=== PATIENT | female | born 1980 | race Caucasian/White ===

== ENCOUNTER 2017-11-12 18:33 | Inpatient (IN) | payer OTHER, SELFPAY ==
[2017-11-12] VITALS (7 sets, daily range): BP systolic 129–147; BP diastolic 84–98; PULSE 84–111; RESP 16–19; TEMP 36.4–36.9; O2SAT 94–100; BMI 34.4; BMI 34.8
--- NOTE | 2017-11-12 18:46 | ED.RN ---
NO OLD EKG'S IN MUSE
--- NOTE | 2017-11-12 18:50 | EKG12_ITS ---
Test Reason : CP Blood Pressure : / mmHG Vent. Rate : 104 BPM Atrial Rate : 104 BPM P-R Int : 150 ms QRS Dur : 080 ms QT Int : 336 ms P-R-T Axes : 054 041 016 degrees QTc Int : 441 ms Sinus tachycardia Otherwise normal ECG Confirmed by JAH HARRIS, REYNALDO ([id number]), editor book MARY GRACE OLSEN ([id number]) on 11/14/2017 10:51:38 AM Referred By: JACQUE RODRÍGUEZ Confirmed By:REYNALDO TYSON MD
--- NOTE | 2017-11-12 18:50 | RAD_ITS ---
STUDY: X-RAY CHEST REASON FOR EXAM: Female, 37 years old. Shortness breath and chest pain TECHNIQUE: Single frontal view of the chest. COMPARISON: Chest x-ray September 12, 2016 FINDINGS: The lungs are clear and expanded. There is no demonstrated pleural abnormality. Normal size heart. Normal mediastinum and lor. Normal visualized pulmonary arteries. Normal visualized aortic arch and descending thoracic aorta. Normal visualized thoracic spine. Normal visualized ribs, clavicles, and shoulders. There is no demonstrated abnormality of the visualized soft tissue structures of the upper abdomen. RAD/Chest 1 View (Portable) IMPRESSION: Normal x-ray examination of the chest. Electronically Signed: Juan Pastor MD at 19:15 EST , Service support ,
[2017-11-12 19:11] LABS: Absolute Lymphocyte Count 2.35 X10^3/ul (0.83-4.51); Basophil# 0.04 X10^3/uL; Basophil% 0.3 % (0-1); Eosinophil# 0.18 X10^3/uL; Eosinophils% 1.5 % (0-5); Hematocrit 42.8 % (37-47); Hemoglobin 14.6 g/dl (12.0-15.0); Lymphocyte # 2.35 X10^3/ul (4.0); Lymphocyte % 20.1 % (19-41); Mean Corp Hgb Conc 34.1 g/gl (32-36); Mean Corpuscular Hgb 30.4 pg (27.0-32.0); Mean Platelet Vol. 10.3 fl (6.2-12.0); Monocyte# 1.12 X10^3/uL; Monocyte% 9.6 % (0-10); Neutrophil # 7.98 X10^3/uL (2.7-7.7); Neutrophil % 68.2 % (47-70); POSITIVE COUNT NO; POSITIVE DIFFERENTIAL NO; POSITIVE MORPHOLOGY NO; Platelet Count 247 K/mm3 (150-450); RBC Distribution Width CV 12.1 % (11.6-14.6); Red Blood Count 4.81 M/mm3 (4.2-5.4); White Blood Count 11.7 K/mm3 (4.4-11.0)
--- NOTE | 2017-11-12 19:17 | CT_ITS ---
STUDY: CTA CHEST REASON FOR EXAM: Female, 37 years old. Shortness of breath and chest pain RADIATION DOSAGE (If Supplied By Facility): CTDIvol = ( 18.18 ) mGy, DLP = ( 713.59 ) mGycm TECHNIQUE: The examination was performed with the intravenous administration of 100ML ml of Isovue 370 contrast material. Post-processing of the angiographic images was performed, with multiplanar reformation and 3D reconstruction. Individualized dose optimization techniques were used for this CT. COMPARISON: November 12, 2017 chest x-ray FINDINGS: Occlusive filling defects are noted within the right and left main pulmonary arteries. No saddle embolism is identified. These filling defects extend into all the lobar and segmental branches bilaterally. No evidence of right ventricular strain. Normal thoracic aorta and visualized great vessels. There is no demonstrated aortic dissection. Normal heart and pericardium. Normal mediastinum. Normal hilar regions. Normal visualized trachea and bronchi. The lungs are well expanded. Normal pulmonary parenchyma. Normal pleura. Normal chest wall structures. Normal osseous structures. Normal visualized upper abdomen. CT/CTA Chest W/WO Contrast IMPRESSION: Extensive pulmonary emboli as above N.B. : The above information has been verbally conveyed by Juan Pastor MD to Marcela Vinson on 11/12/2017 20:28:43 (ET). Electronically Signed: Juan Pastor MD at 20:27 EST , Service support , N.B. : The above information has been verbally conveyed by Juan Pastor MD to Marcela Vinson on 11/12/2017 20:28:43 (ET).
--- NOTE | 2017-11-12 19:20 | ED.DCSUM_ITS ---
- ER Visit Summary Date of Service: 11/12/17 Chief Complaint: Chest pain History of Present Illness: The patient is a 37 F presenting with chest pain that started this morning. She complains of chest pain which has been constant but worsened with deep breathing. Associated with shortness of breath and nausea. She has felt lightheaded but had no syncope. She had Achilles tendon repair on October [address] James. Her left lower extremity is in a cast. She takes aspirin daily. She denies other PE/DVT risk factors. Denies coronary artery disease risk factors. Physical Examination: Vitals are stable. Patient is afebrile. Alert no acute distress. HEENT exam is unremarkable. Neck is supple. Lungs are clear and equal bilaterally. Heart is regular rate and rhythm. Abdomen is soft nontender nondistended. Extremities left lower extremity cast Skin is warm and dry. No focal neurologic deficit. Remainder of exam is unremarkable. Emergency Department Course and Treatment: EKG is sinus tachycardia rate of 104. Chest x-ray shows no acute process. CBC shows a white count 11.7. Chemistries unremarkable. Troponin is 1.03. HCG negative. CTA chest was obtained and shows occlusive filling defects are noted within the right and left main pulmonary arteries. No saddle embolism is identified. These filling defects extend into all the lobar and segmental branches bilaterally. No evidence of right ventricular strain. She is started on heparin drip. Discussed with the hospitalist for admission. Disposition: Admission Impression: Bilateral PE This note was generated with [employer] dictation software. It may contain incorrect words, spelling, and punctuation that were not noted in review of the chart prior to signing ED Disposition - Plan for ED Patient: Chief Complaint: Chest Pain Referrals: Lester Harrington DO [Primary Care Provider] -
[2017-11-12 19:38] LABS: Anion Gap 10 (5-15); BUN 13 mg/dL (7-18); BUN/Creat Ratio 14.9 RATIO (10-20); Calcium,Total 9.2 mg/dL (8.5-10.1); Chloride 109 mmol/L (98-107); Creatinine, Serum 0.87 mg/dL (0.55-1.02); EST Glomerular Filtration Rate 77 mL/min (>60); Est Glom Filt Rate - Afr Amer 94 mL/min (>60); Estimated Creatinine Clearance 95.74 ml/min; Glucose 98 mg/dL (70-110); Potassium 3.6 mmol/L (3.5-5.1); Pregnancy, Serum, hCG Quali. NEGATIVE Negative (0-9 Nonpreg); Sodium Level 140 mmol/L (136-145)
--- NOTE | 2017-11-12 19:38 | ED.RN ---
DR. SANTILLAN MADE AWARE OF ELEVATED TROPONIN 1.030
[2017-11-12] MEDS: Ondansetron 4 MG/2 ML Vial IV (20:09)
[2017-11-12 20:27] LABS: D-Dimer Quantitative (DVT/PE) 11.81 FEU/ug/m (0.27-0.49)
--- NOTE | 2017-11-12 20:27 | ED.RN ---
DR. SANTILLAN AWARE OF ELEVATED DDIMER- 11.8
[2017-11-12] MEDS: HEPARIN/D5w 25,000 UNITS 25,000 UNITS/250 ML IV.SOLN. 15 UNITS IV (20:55)
[2017-11-12 20:56] LABS: Partial Thromboplast Time 28.6 Seconds (24.1-36.2)
--- NOTE | 2017-11-12 21:42 | HP.PCM_ITS ---
Problem List (1) Bilateral pulmonary embolism Status: Acute (2) Asthmatic bronchitis Status: Chronic (3) IBS (irritable bowel syndrome) Status: Chronic History of Present Illness Date of Admission: 11/12/17 Chief Complaint: Bilateral pulmonary embolism The patient is a 37 year old female w/ h/o left leg cast secondary to Achilles tendon repair on October 23, 2017 admitted for bilateral PE. She c/o acute sudden chest pain that started this morning. Deep breath made it worse. Lying down and shallow breathing improved the pain. She also noted n/v with her chest pain. Pain is constant and is moderate to severe. Pain is substernal and is pressure-like. She was placed on ASA a few days ago by Dr. James. She has no other complaint. Past Medical History Past Medical History (Chronic Problems): Chronic Problems IBS (irritable bowel syndrome) (Chronic) Asthmatic bronchitis (Chronic) Allergies doxycycline Adverse Reaction (Verified 11/12/17 18:38) Vomiting Home Medications: Ambulatory Orders Medication Instructions Recorded Cholecalciferol (Vitamin D3) 5,000 units PO QHS 09/12/16 [Vitamin D3] Fluoxetine [Prozac] 20 mg PO QHS 09/12/16 Hyoscyamine Sulfate [Hyoscyamine 0.375 mg PO QHS 09/12/16 Sulfate ER] L.acidoph,Paracasei, B.lactis 1 each PO DAILY 09/12/16 [Probiotic] Levonorgestrel-Ethin Estradiol 1 each PO DAILY 09/12/16 [Lutera-28 Tablet] Surgical History: - - tonsil removed Smoking Status: Former smoker - *Family History Maternal History Items: - - mother with muscular dystrophy. Review of Systems Constitutional: Denies: Chills, Fever, Weight Change HEENT: Denies: Head Aches, Sinus Congestion, Sinus Drainage Cardiovascular: Reports: Chest Pain, Chest Pressure, Chest Tightness. Denies: Palpitations Respiratory: Denies: Cough, Shortness of breath at rest, Sputum production Gastrointestinal: Denies: Abdominal Pain, Nausea, Vomiting Genitourinary: Denies: Dysuria Musculoskeletal: Denies: Joint Pain, Joint Tenderness Skin: Denies: Rash, Wounds Neurological: Denies: Numbness, Tingling, Focal weakness Psychiatric: Denies: Anxiety, Depression, Homicidal Ideations, Suicidal Ideations Hematologic/ Lymphatic: Denies: Easy Bruising, Easy Bleeding VTE Information - Inpt Only VTE Present on Admission: No VTE Mechan Device Prophylaxis: SCD's VTE Pharm Prophylaxis ordered?: Yes Patient Problems: Active and Suspected Problems Bilateral pulmonary embolism (Acute) - Physical Exam General: Alert, Oriented x3, Cooperative HEENT: Atraumatic, PERRLA, EOMI, Normocephalic Neck: Supple, No JVD, Negative Carotid Bruits Lungs: Clear to auscultation, Normal air movement Cardiovascular: Regular rate, No murmurs Abdomen: Bowel Sounds Present, Soft, Non Tender Extremities: No edema, Capillary Refill Less than 3 Seconds Skin: No rashes, No breakdown Musculoskeletal: No Tenderness to Palpation of Joints or Extremities Neurological: Cranial nerves II-XII grossly intact Psych/Mental Status: Normal Affect, Appropriate Vital Signs Temp Pulse Resp BP Pulse Ox 98.5 F 97 16 134/94 H 98 11/12/17 18:38 11/12/17 21:27 11/12/17 21:27 11/12/17 21:27 11/12/17 21:27 Oxygen Flow Rate 2 Oxygen Delivery Method Nasal Cannula Weight: 108.862 kg Body Mass Index (BMI) 34.4 Laboratory Tests Past 24 Hrs 11/12/17 11/12/17 11/12/17 19:03 19:03 19:03 WBC 11.7 H RBC 4.81 Hgb 14.6 Hct 42.8 MCV 89.0 MCH 30.4 MCHC 34.1 RDW 12.1 RDW Differential 39.0 Plt Count 247 MPV 10.3 Immature Gran % (Auto) 0.300 Neut % (Auto) 68.2 Lymph % (Auto) 20.1 Carson % (Auto) 9.6 Eos % (Auto) 1.5 Baso % (Auto) 0.3 Absolute Neuts (auto) 8.0 H Absolute Lymphs (auto) 2.35 Total Counted Not Reportable APTT D-Dimer Quant (PE/DVT) 11.81 H* Sodium 140 Potassium 3.6 Chloride 109 H Carbon Dioxide 21.0 Anion Gap 10 BUN 13 Creatinine 0.87 Estim Creat Clear Calc 95.74 Est GFR (MDRD) Af Amer 94 Est GFR (MDRD) Non-Af 77 BUN/Creatinine Ratio 14.9 Glucose 98 Calcium 9.2 Troponin I 1.03 H* Serum , Qual 11/12/17 11/12/17 19:03 19:03 WBC RBC Hgb Hct MCV MCH MCHC RDW RDW Differential Plt Count MPV Immature Gran % (Auto) Neut % (Auto) Lymph % (Auto) Carson % (Auto) Eos % (Auto) Baso % (Auto) Absolute Neuts (auto) Absolute Lymphs (auto) Total Counted APTT 28.6 D-Dimer Quant (PE/DVT) Sodium Potassium Chloride Carbon Dioxide Anion Gap BUN Creatinine Estim Creat Clear Calc Est GFR (MDRD) Af Amer Est GFR (MDRD) Non-Af BUN/Creatinine Ratio Glucose Calcium Troponin I Serum , Qual NEGATIVE Assessment/Plan Active and Suspected Problems Bilateral pulmonary embolism (Acute) 37 year old female w/ h/o left leg cast secondary to Achilles tendon repair on October 23, 2017 admitted for bilateral PE. 1) Bilateral PE: CT disclosed occlusive filling defects within the right and left main pulmonary arteries. No saddle embolism is identified. These filling defects extend into all the lobar and segmental branches bilaterally. Will start heparin gtt. Will get ECHO. Will also get hypercoagulable workup, although most likely provoked by recent surgery and immobilization of left leg. 2) Chest pain: Will get serial trops. Most likely secondary to PE. Monitor. 3) H/o left leg cast secondary to Achilles tendon repair: C/w supportive care. Monitor. 4) Prophylaxis: Heparin.
[2017-11-12] MEDS: FLUoxetine 20 MG Capsule PO (23:37)
[2017-11-13] VITALS (11 sets, daily range): BP systolic 108–129; BP diastolic 63–78; PULSE 62–102; RESP 16–18; TEMP 36.4–37.1; O2SAT 95–100
[2017-11-13 03:20] LABS: Partial Thromboplast Time 73.8 Seconds (24.1-36.2)
--- NOTE | 2017-11-13 05:55 | ECHOD_ITS ---
Reason For Study: chest pain Procedure This was a 2D Doppler, Color Flow transthoracic echocardiogram. Exam performed portable in patient room. Left Ventricle Normal LV size. Left ventricular systolic function is normal. The estimated ejection fraction is 55 %. No regional wall motion abnormalities noted. Right Ventricle Normal RV size. Mild global right ventricular systolic dysfunction. Atria Normal left atrium. Normal right atrium. Mitral Valve Normal mitral valve. Tricuspid Valve Normal tricuspid valve. Mild (1+) tricuspid valve insufficiency. Pulmonary artery systolic pressure is 42 mmHg. Mild pulmonary hypertension. Aortic Valve Normal aortic valve. Trisinus/trileaflet aortic valve. Pulmonic Valve Normal pulmonic valve. Great Vessels Normal aortic root. The pulmonary artery is normal size. Pericardium/Pleural No pericardial effusion. MMode/2D Measurements & Calculations LVIDd: 4.0 cm IVSd: 1.1 cm Ao root diam: 2.8 cm LVIDs: 2.5 cm LVPWd: 1.0 cm LA dimension: 3.2 cm RVDd: 3.7 cm FS: 37.4 % LAV(MOD-bp): 32.0 ml LA A4 area: 12.9 cm2 RA A4 area: 16.6 cm2 LAV(MOD-bp) Indexed: 14.2 ml/m2 LAV(MOD-sp2): 27.8 ml LAV(MOD-sp4): 27.3 ml Doppler Measurements & Calculations MV E max jorge alberto: 50.0 cm/sec Lat Peak E' Jorge Alberto: 13.0 cm/sec Med Peak E' Jorge Alberto: 10.1 cm/sec MV A max jorge alberto: 61.0 cm/sec E/E' lat: 3.8 E/E' med: 4.9 MV E/A: 0.82 Ao V2 max: 122.9 cm/sec LV V1 max: 93.2 cm/sec PA V2 max: 77.0 cm/sec Ao max P.0 mmHg LV V1 max P.5 mmHg TR max jorge alberto: 302.1 cm/sec TR max P.6 mmHg Interpretation Summary Normal LV size. Left ventricular systolic function is normal. The estimated ejection fraction is 55 %. Mild global right ventricular systolic dysfunction. Pulmonary artery systolic pressure is 42 mmHg. Mild pulmonary hypertension. Ordering Physician: Macario Cronin Referring Physician: Lester Harrington Performed By: Gale Gross, STAR, RVT
[2017-11-13 06:21] LABS: Hemoglobin 13.6 g/dl (12.0-15.0); Mean Corpuscular Hgb 30.7 pg (27.0-32.0); Mean Corpuscular Volume 90.3 fL (81-99); Mean Platelet Vol. 10.6 fl (6.2-12.0); Platelet Count 247 K/mm3 (150-450); RBC Distribution Width CV 12.3 % (11.6-14.6); RBC Distribution Width SD 39.7 fl (35.1-43.9); Red Blood Count 4.43 M/mm3 (4.2-5.4); White Blood Count 8.2 K/mm3 (4.4-11.0)
[2017-11-13 06:29] LABS: Scan Indicated on CBC? Y/N NO
[2017-11-13 06:37] LABS: Anion Gap 8 (5-15); BUN 13 mg/dL (7-18); BUN/Creat Ratio 14.8 RATIO (10-20); Calcium,Total 8.8 mg/dL (8.5-10.1); Chloride 105 mmol/L (98-107); Creatinine, Serum 0.88 mg/dL (0.55-1.02); EST Glomerular Filtration Rate 77 mL/min (>60); Est Glom Filt Rate - Afr Amer 93 mL/min (>60); Estimated Creatinine Clearance 94.65 ml/min; Glucose 121 mg/dL (70-110); Sodium Level 140 mmol/L (136-145)
[2017-11-13 08:43] LABS: Partial Thromboplast Time 56.7 Seconds (24.1-36.2)
--- NOTE | 2017-11-13 11:17 | CASEMGMT ---
RN AMY Face to Face with patient for initial transition planning/care coordination assessment. RN CM introduced self and role at [facility]. Patient lying in chair, alert and oriented, family at bedside. Patient willing to participate in assessment and is able to answer all questions appropriately. Care providers, pharmacy, and demographics verified. See link attached. Patient wishes to discharge home, denies need for home health or DME at this time. Patient states she has no further needs or concerns at this time. CM to follow for discharge planning needs that may arise. Disposition Plan: Patient to discharge home with family support and follow-up plans at home.
[2017-11-13] MEDS: Acetaminophen 325 MG Tablet 650 MG PO (12:48)
[2017-11-13] MEDS: HEPARIN/D5w 25,000 UNITS 25,000 UNITS/250 ML IV.SOLN. 15 UNITS IV (12:48)
--- NOTE | 2017-11-13 14:09 | PN_ITS ---
Patient Problems: Active and Suspected Problems Bilateral pulmonary embolism (Acute) Subjective: Patient is a 37-year-old female with a history of asthma and irritable bowel syndrome currently had an Achilles tendon repair on 10/23/2017 sequently had a cast placed. She had been on ASA only a few days for DVT prophylaxis. She presented to the emergency department at [facility] on 2017 complaining of sudden onset chest pain which worsened with a deep breath. Vital signs at presentation to the emergency room were temp 98.5, pulse rate 111 , blood pressure 147/93, respiratory rate 19 and she was 98 100% saturated on room air. Significant lab included a d-dimer of 11.81 and a troponin of 1.03. CTA of the chest showed occlusive filling defects within the right and left main pulmonary arteries with no saddle embolism. The filling defects extended into all the lobar and segmental branches bilaterally. She was admitted to a monitored bed in the hospital with a diagnosis of extensive pulmonary emboli and she was started on a continuous heparin drip. Echocardiogram has been done to evaluate for right ventricular strain but results are not available at this time. She continues to complain of chest pain with deep breath. She had chest tightness when she ambulated to the bathroom and got very short of breath. She still has some lightheadedness with standing. She denies hemoptysis. she is taking shallow breaths and has not asked for any pain medication other than tylenol. She has never been and she denies any history of DVT. There is no family history of hypercoagulable disorders. She takes control pills to regulate her periods. She follows with Dr. Banks as an outpatient. - Physical Exam General: Alert, Oriented x3, Cooperative, Well developed, Well nourished HEENT: Atraumatic, PERRLA, EOMI, Normocephalic Oral: Dry Mucosa Neck: Supple, No JVD, Trachea Midline Lungs: Clear to auscultation, No rhonchi, No wheeze, No rales, Diminished - due to poor inspiratory effort Cardiovascular: Regular rate, No murmurs, No rub noted, No Gallop, Tachycardic Abdomen: Bowel Sounds Present, Soft, Non Tender, Non-Distended, Obese Extremities: - - Left lower extremity is in a cast which extends to approximately mid tibia. Skin: No rashes Neurological: Cranial nerves II-XII grossly intact, Neuro grossly intact Psych/Mental Status: Normal Affect, Appropriate Vital Signs Temp Pulse Resp BP Pulse Ox 97.6 F L 92 16 108/78 100 11/13/17 08:17 11/13/17 11:05 11/13/17 08:17 11/13/17 08:17 11/13/17 08:17 Oxygen Delivery Method Room Air Weight: 242 lb 11.663 oz Body Mass Index (BMI) 34.8 Intake and Output for Last 24 Hours 11/11/17 11/12/17 11/13/17 23:59 23:59 23:59 Intake Total 610.4 / 610.4 Output Total 0 / 0 Balance 610.4 / 610.4 Laboratory Tests Past 24 Hrs 11/12/17 11/12/17 11/13/17 22:40 22:40 02:30 WBC RBC Hgb Hct MCV MCH MCHC RDW RDW Differential Plt Count MPV APTT 73.8 H Dil Silvestre Viper Venom Protein C Antigen Pending Functional Protein C Pending Prot C Funct Activity Pending Antithrombin III Ag Pending Func Antithrombin III Pending Factor V Leiden Mutat Pending Sodium Potassium Chloride Carbon Dioxide Anion Gap BUN Creatinine Estim Creat Clear Calc Est GFR (MDRD) Af Amer Est GFR (MDRD) Non-Af BUN/Creatinine Ratio Glucose Calcium Troponin I 0.90 H* Beta-2-GPI IgG Ab Pending Beta-2-GPI IgA Ab Pending Beta-2-GPI IgM Ab Pending Anti-Cardiolipin IgG Ab Pending Anti-Cardiolipin IgM Ab Pending Factor II DNA Analysis Pending 11/13/17 11/13/17 11/13/17 02:30 03:00 05:35 WBC 8.2 RBC 4.43 Hgb 13.6 Hct 40.0 MCV 90.3 MCH 30.7 MCHC 34.0 RDW 12.3 RDW Differential 39.7 Plt Count 247 MPV 10.6 APTT Dil Silvestre Viper Venom Pending Protein C Antigen Functional Protein C Prot C Funct Activity Antithrombin III Ag Func Antithrombin III Factor V Leiden Mutat Sodium Potassium Chloride Carbon Dioxide Anion Gap BUN Creatinine Estim Creat Clear Calc Est GFR (MDRD) Af Amer Est GFR (MDRD) Non-Af BUN/Creatinine Ratio Glucose Calcium Troponin I 0.55 H Beta-2-GPI IgG Ab Beta-2-GPI IgA Ab Beta-2-GPI IgM Ab Anti-Cardiolipin IgG Ab Anti-Cardiolipin IgM Ab Factor II DNA Analysis 11/13/17 11/13/17 11/13/17 05:35 08:20 08:20 WBC RBC Hgb Hct MCV MCH MCHC RDW RDW Differential Plt Count MPV APTT 56.7 H Dil Silvestre Viper Venom Protein C Antigen Functional Protein C Prot C Funct Activity Antithrombin III Ag Func Antithrombin III Factor V Leiden Mutat Sodium 140 Potassium 4.0 Chloride 105 Carbon Dioxide 27.0 Anion Gap 8 BUN 13 Creatinine 0.88 Estim Creat Clear Calc 94.65 Est GFR (MDRD) Af Amer 93 Est GFR (MDRD) Non-Af 77 BUN/Creatinine Ratio 14.8 Glucose 121 H Calcium 8.8 Troponin I 0.33 H Beta-2-GPI IgG Ab Beta-2-GPI IgA Ab Beta-2-GPI IgM Ab Anti-Cardiolipin IgG Ab Anti-Cardiolipin IgM Ab Factor II DNA Analysis Assessment/Plan Active and Suspected Problems Bilateral pulmonary embolism (Acute) Impressions 1. Extensive bilateral pulmonary emboli with suspected RV strain and pulmonary HTN 2. Left Achilles tendon repair 10/23/2017 with cast placement 3. Obesity 4. Former smoker 5. History of asthma 6. Irritable bowel syndrome 7. Anxiety/depression 8. Pleuritic chest pain with hypoventilation Consult Dr. Horner for pulmonary hypertension and right ventricular strain because she will need follow-up after discharge Discontinue heparin infusion and start Xarelto 15 mg p.o. twice daily. This was discussed extensively with the patient and all pros and cons were discussed. No control pills Will need at least 6 months of anticoagulation. Await the results of the echocardiogram done today She will need to follow-up with Dr. Amber Banks post discharge to discuss menorrhagia and treatment since she will no longer be able to take control pills Results of the hypercoagulable panel are pending - the panel was drawn after she had received Heparin and the results may not be accurate...Will likely need follow up with hematology post DC Recheck BMP in the AM Incentive spirometry Code Visit Inpatient E&M: [address]001 [facility] L3
--- NOTE | 2017-11-13 15:05 | CON.PCM_ITS ---
Reason for Consult Date of Consultation: 11/13/17 Reason for Consultation: Pulmonary embolism History of Present Illness: The patient is a 37-year-old female, with a history as outlined below, who presented to the emergency department on November 12 with complaints of acute onset chest heaviness and dyspnea. The patient recently underwent an Achilles tendon repair at the beginning of October. A cast was subsequently applied to her left lower extremity. She was essentially nonweightbearing for a period of approximately 2 weeks. She was started on low-dose aspirin approximately 2 weeks after her surgery. She does currently utilizing oral contraceptive for control. She denies smoking. The patient reports no personal or family history of venous thromboembolic disease. There is no family history of a hypercoagulable state. On presentation to the emergency department, was noted to be afebrile, tachycardic and hemodynamically stable. Initial laboratory evaluation revealed an elevated d-dimer to 11.8. CBC and chemistry profile were largely unremarkable. Troponin was elevated to 1.03. A CTA chest was obtained which revealed bilateral mainstem pulmonary emboli extending out distally bilaterally. There was no evidence of RV strain by CT. The patient was subsequently started on a heparin drip and admitted to the progressive care unit for ongoing management. Past Medical History Past Medical History (Chronic Problems): Chronic Problems IBS (irritable bowel syndrome) (Chronic) Asthmatic bronchitis (Chronic) Allergies doxycycline Adverse Reaction (Verified 11/12/17 18:38) Vomiting Home Medications: Ambulatory Orders Medication Instructions Recorded Cholecalciferol (Vitamin D3) 5,000 units PO QHS 09/12/16 [Vitamin D3] Fluoxetine [Prozac] 20 mg PO QHS 09/12/16 Hyoscyamine Sulfate [Hyoscyamine 0.375 mg PO QHS 09/12/16 Sulfate ER] L.acidoph,Paracasei, B.lactis 1 each PO DAILY 09/12/16 [Probiotic] Levonorgestrel-Ethin Estradiol 1 each PO DAILY 09/12/16 [Lutera-28 Tablet] Rivaroxaban [Xarelto] 1 tab PO UD #51 tab 11/13/17 Surgical History: - - tonsil removed Smoking Status: Former smoker - *Family History Maternal History Items: - - mother with muscular dystrophy. Review of Systems Constitutional: Denies: Chills, Fever, Night Sweats Eyes: Denies: Blurred vision, Double vision HEENT: Denies: Head Aches, Sinus Congestion, Sinus Drainage Cardiovascular: Reports: Chest Pain, Chest Pressure, Light Headedness Respiratory: Reports: Pleuritic Pain, Shortness of Breath Gastrointestinal: Denies: Abdominal Pain, Nausea, Vomiting Genitourinary: Denies: Dysuria Musculoskeletal: Denies: Joint Pain, Joint Tenderness Skin: Denies: Rash, Wounds Neurological: Denies: Numbness, Tingling, Focal weakness Psychiatric: Denies: Anxiety, Depression, Homicidal Ideations, Suicidal Ideations Hematologic/ Lymphatic: Reports: Hx of blood clot. Denies: Easy Bruising, Easy Bleeding Patient Problems: Active and Suspected Problems Bilateral pulmonary embolism (Acute) Objective: The patient's most recent lab work, culture data and imaging studies have all been personally reviewed. Surface echocardiogram revealed mild global RV dysfunction along with evidence of mild pulmonary hypertension. - Physical Exam General: Alert, Oriented x3, Cooperative, No apparent distress HEENT: Atraumatic, PERRLA, Normocephalic Oral: Moist Mucosa, No Gingival or Mucosal Lesions/ Ulcerations Neck: Supple, No Nodes, Trachea Midline Lungs: Normal air movement, No rhonchi, No wheeze, No rales Cardiovascular: Normal S1, Normal S2, No murmurs, No rub noted, No Gallop, Tachycardic Abdomen: Bowel Sounds Present, Soft, Non Tender, Obese Extremities: No clubbing, No cyanosis, No edema, - - Cast in place over distal left lower extremity. Skin: No rashes, No breakdown Musculoskeletal: No Tenderness to Palpation of Joints or Extremities Lymphatic: No Cervical, Supraclavicular, or Inguinal Adenopathy Neurological: Neuro grossly intact Psych/Mental Status: Alert and oriented to time, place, person, mood and affect Vital Signs Temp Pulse Resp BP Pulse Ox 98.4 F 92 16 120/73 95 11/13/17 14:37 11/13/17 14:37 11/13/17 14:37 11/13/17 14:37 11/13/17 14:37 Oxygen Delivery Method Room Air Weight: 242 lb 11.663 oz Body Mass Index (BMI) 34.8 Intake and Output for Last 24 Hours 11/11/17 11/12/17 11/13/17 23:59 23:59 23:59 Intake Total 610.4 / 610.4 Output Total 0 / 0 Balance 610.4 / 610.4 Laboratory Tests Past 24 Hrs 11/12/17 11/12/17 11/13/17 22:40 22:40 02:30 WBC RBC Hgb Hct MCV MCH MCHC RDW RDW Differential Plt Count MPV APTT 73.8 H Dil Silvestre Viper Venom Protein C Antigen Pending Functional Protein C Pending Prot C Funct Activity Pending Antithrombin III Ag Pending Func Antithrombin III Pending Factor V Leiden Mutat Pending Sodium Potassium Chloride Carbon Dioxide Anion Gap BUN Creatinine Estim Creat Clear Calc Est GFR (MDRD) Af Amer Est GFR (MDRD) Non-Af BUN/Creatinine Ratio Glucose Calcium Troponin I 0.90 H* Beta-2-GPI IgG Ab Pending Beta-2-GPI IgA Ab Pending Beta-2-GPI IgM Ab Pending Anti-Cardiolipin IgG Ab Pending Anti-Cardiolipin IgM Ab Pending Factor II DNA Analysis Pending 11/13/17 11/13/17 11/13/17 02:30 03:00 05:35 WBC 8.2 RBC 4.43 Hgb 13.6 Hct 40.0 MCV 90.3 MCH 30.7 MCHC 34.0 RDW 12.3 RDW Differential 39.7 Plt Count 247 MPV 10.6 APTT Dil Silvestre Viper Venom Pending Protein C Antigen Functional Protein C Prot C Funct Activity Antithrombin III Ag Func Antithrombin III Factor V Leiden Mutat Sodium Potassium Chloride Carbon Dioxide Anion Gap BUN Creatinine Estim Creat Clear Calc Est GFR (MDRD) Af Amer Est GFR (MDRD) Non-Af BUN/Creatinine Ratio Glucose Calcium Troponin I 0.55 H Beta-2-GPI IgG Ab Beta-2-GPI IgA Ab Beta-2-GPI IgM Ab Anti-Cardiolipin IgG Ab Anti-Cardiolipin IgM Ab Factor II DNA Analysis 11/13/17 11/13/17 11/13/17 05:35 08:20 08:20 WBC RBC Hgb Hct MCV MCH MCHC RDW RDW Differential Plt Count MPV APTT 56.7 H Dil Silvestre Viper Venom Protein C Antigen Functional Protein C Prot C Funct Activity Antithrombin III Ag Func Antithrombin III Factor V Leiden Mutat Sodium 140 Potassium 4.0 Chloride 105 Carbon Dioxide 27.0 Anion Gap 8 BUN 13 Creatinine 0.88 Estim Creat Clear Calc 94.65 Est GFR (MDRD) Af Amer 93 Est GFR (MDRD) Non-Af 77 BUN/Creatinine Ratio 14.8 Glucose 121 H Calcium 8.8 Troponin I 0.33 H Beta-2-GPI IgG Ab Beta-2-GPI IgA Ab Beta-2-GPI IgM Ab Anti-Cardiolipin IgG Ab Anti-Cardiolipin IgM Ab Factor II DNA Analysis Clinical Impression(s) from Imaging Studies Chest X-Ray 11/12/17 18:50 IMPRESSION: Normal x-ray examination of the chest. Electronically Signed: Juan Pastor MD at 19:15 EST , Service support , Chest CTA 11/12/17 19:17 IMPRESSION: Extensive pulmonary emboli as above N.B. : The above information has been verbally conveyed by Juan Pastor MD to Marcela Vinson on 11/12/2017 20:28:43 (ET). Electronically Signed: Juan Pastor MD at 20:27 EST , Service support , N.B. : The above information has been verbally conveyed by Juan Pastor MD to Marcela Vinson on 11/12/2017 20:28:43 (ET). Assessment/Plan Active and Suspected Problems Bilateral pulmonary embolism (Acute) RECOMMENDATIONS: 1. Okay from my perspective to initiate Xarelto. 2. Encourage incentive spirometer use and mobilize patient as tolerated 3. The patient will require a formal walk evaluation prior to consideration for discharge from the hospital. She will likely have an oxygen requirement. This can be reassessed at her follow-up office visit. 4. Recommend follow-up in the pulmonary medicine clinic within 2 weeks of her discharge from the hospital. IMPRESSIONS: 1. Submassive pulmonary embolism Despite the patient's extensive clot burden, she has remained hemodynamically stable. Aside from the use of oral contraceptives, the patient does endorse recent immobility following her recent Achilles tendon repair. I would recommend a minimum of 6 months of anticoagulation therapy. She has been transitioned from a heparin drip over to Xarelto. A surface echocardiogram is currently pending. Troponins are downtrending. Perform walking oximetry study prior to consideration for discharge from the hospital. It is highly likely that the patient will have a new supplemental oxygen requirement. She will require a close interval follow-up office visit with our nurse practitioner within 2 weeks of her discharge. Her ongoing need for supplemental oxygen can be reassessed at that time. 2. Troponin elevation/mild RV dysfunction and pulmonary hypertension Likely secondary to cardiac strain imposed by extensive clot burden. This should resolve with time and appropriate anticoagulation therapy. Plan to reassess with repeat outpatient echocardiogram. This note was generated with [employer] dictation software. It may contain incorrect words, spelling, and punctuation that were not noted in checking the note before signing. Code Visit Inpatient E&M: 60321 Init Hosp L2
[2017-11-13] MEDS: Rivaroxaban 15 MG Tablet PO (16:45)
[2017-11-13] MEDS: 0.9% Normal Saline 1,000 ML 500 ML IV (16:45)
[2017-11-13] MEDS: FLUoxetine 20 MG Capsule PO (22:19)
[2017-11-14] VITALS (10 sets, daily range): BP systolic 130–144; BP diastolic 71–82; PULSE 76–91; RESP 12–16; TEMP 36.6–37.3; O2SAT 95–99
[2017-11-14 07:37] LABS: Hematocrit 39.5 % (37-47); Hemoglobin 13.2 g/dl (12.0-15.0); Mean Corp Hgb Conc 33.4 g/gl (32-36); Mean Corpuscular Hgb 30.5 pg (27.0-32.0); Mean Corpuscular Volume 91.2 fL (81-99); Mean Platelet Vol. 10.2 fl (6.2-12.0); Platelet Count 215 K/mm3 (150-450); RBC Distribution Width CV 12.2 % (11.6-14.6); RBC Distribution Width SD 40.2 fl (35.1-43.9); Red Blood Count 4.33 M/mm3 (4.2-5.4); White Blood Count 6.3 K/mm3 (4.4-11.0)
[2017-11-14 07:38] LABS: Scan Indicated on CBC? Y/N NO
[2017-11-14 07:58] LABS: ALB/GLOB Ratio 0.8 RATIO (0.9-2.4); AST(SGOT) 12 U/L (15-37); Alanine Aminotransfer ALT/SGPT 28 U/L (13-56); Alkaline Phosphatase 87 U/L (45-117); Anion Gap 6 (5-15); BUN 13 mg/dL (7-18); BUN/Creat Ratio 13.3 RATIO (10-20); Calcium,Total 8.4 mg/dL (8.5-10.1); Chloride 108 mmol/L (98-107); Cholesterol 173 mg/dL (200); Creatinine, Serum 0.97 mg/dL (0.55-1.02); EST Glomerular Filtration Rate 68 mL/min (>60); Est Glom Filt Rate - Afr Amer 83 mL/min (>60); Estimated Creatinine Clearance 85.87 ml/min; Globulin 3.7 g/dL (2.2-4.2); Glucose 108 mg/dL (70-110); High Density Lipoprotein 48 mg/dL; Potassium 4.1 mmol/L (3.5-5.1); Protein, Total 6.7 g/dL (6.4-8.2); Sodium Level 143 mmol/L (136-145); Triglycerides 77 mg/dL; Very Low Density Lipoprotein 15 mg/dL (5-40)
[2017-11-14] MEDS: Rivaroxaban 15 MG Tablet PO ×2 (09:51→16:16)
--- NOTE | 2017-11-14 10:27 | PCM.PROGNOTE ---
Patient Problems: Active and Suspected Problems Bilateral pulmonary embolism (Acute) Subjective: Patient seen and examined. Reports her chest pain has resolved, but still has significant heaviness. Still having significant dyspnea on exertion. Ambulatory pulse ox has not yet been completed. Remains afebrile and hemodynamically stable. Objective: Clinical Impression(s) from Imaging Studies Chest X-Ray 11/12/17 18:50 IMPRESSION: Normal x-ray examination of the chest. Electronically Signed: Juan Pastor MD at 19:15 EST , Service support , Chest CTA 11/12/17 19:17 IMPRESSION: Extensive pulmonary emboli as above N.B. : The above information has been verbally conveyed by Juan Pastor MD to Marcela Vinson on 11/12/2017 20:28:43 (ET). Electronically Signed: Juan Pastor MD at 20:27 EST , Service support , N.B. : The above information has been verbally conveyed by Juan Pastor MD to Marcela Vnison on 11/12/2017 20:28:43 (ET). Echocardiogram 11/13 showed normal LV systolic function, estimated EF of 55%, mild global right ventricular systolic dysfunction, and RVSP estimated 42 mmHg, c/w mild pulmonary hypertension. - Physical Exam General: Alert, Oriented x3, Cooperative, - - short of breath secondary to just returning from bathroom/ambulation HEENT: Atraumatic, Normocephalic Oral: Moist Mucosa, No Gingival or Mucosal Lesions/ Ulcerations Neck: Supple, No Nodes, Trachea Midline Lungs: Clear to auscultation, No rhonchi, No wheeze, No rales Cardiovascular: Regular rate, Regular Rhythm, Normal S1, Normal S2, No murmurs, No rub noted, No Gallop Abdomen: Bowel Sounds Present, Soft, Non Tender, Non-Distended, Obese Extremities: No clubbing, No cyanosis, No edema, - - LLE cast. Toes pink, cap refill <3 sec Skin: No rashes, No breakdown, Incision - occluded by cast, did not visualize Musculoskeletal: No Tenderness to Palpation of Joints or Extremities Lymphatic: No Cervical, Supraclavicular, or Inguinal Adenopathy Neurological: Neuro grossly intact Psych/Mental Status: Alert and oriented to time, place, person, mood and affect Vital Signs Temp Pulse Resp BP Pulse Ox 98.2 F 81 12 131/80 H 96 11/14/17 09:50 11/14/17 09:50 11/14/17 09:50 11/14/17 09:50 11/14/17 09:50 Oxygen Delivery Method Room Air Weight: 242 lb 11.663 oz Body Mass Index (BMI) 34.8 Intake and Output for Last 24 Hours 11/12/17 11/13/17 11/14/17 23:59 23:59 23:59 Intake Total 610.4 / 610.4 360 / 360 Output Total 0 / 0 Balance 610.4 / 610.4 360 / 360 Laboratory Tests Past 24 Hrs 11/14/17 11/14/17 07:20 07:20 WBC 6.3 RBC 4.33 Hgb 13.2 Hct 39.5 MCV 91.2 MCH 30.5 MCHC 33.4 RDW 12.2 RDW Differential 40.2 Plt Count 215 MPV 10.2 Sodium 143 Potassium 4.1 Chloride 108 H Carbon Dioxide 29.0 Anion Gap 6 BUN 13 Creatinine 0.97 Estim Creat Clear Calc 85.87 Est GFR (MDRD) Af Amer 83 Est GFR (MDRD) Non-Af 68 BUN/Creatinine Ratio 13.3 Glucose 108 Calcium 8.4 L Total Bilirubin 0.30 AST 12 L ALT 28 Alkaline Phosphatase 87 Total Protein 6.7 Albumin 3.0 L Globulin 3.7 Albumin/Globulin Ratio 0.8 L Triglycerides 77 Cholesterol 173 LDL Cholesterol 110 VLDL Cholesterol 15 HDL Cholesterol 48 Assessment/Plan Active and Suspected Problems Bilateral pulmonary embolism (Acute) RECOMMENDATIONS: 1. Continue Xarelto. 2. Encourage incentive spirometer use and mobilize patient as tolerated 3. Walking oximetry prior to discharge from the hospital. She will likely have an oxygen requirement. This can be reassessed at her follow-up office visit. 4. Patient will require repeat echocardiogram, will be arranged at her follow-up appointment. 5. Recommend follow-up in the pulmonary medicine clinic within 2 weeks of her discharge from the hospital. IMPRESSIONS: 1. Submassive pulmonary embolism Despite the patient's extensive clot burden, she has remained hemodynamically stable. Aside from the use of oral contraceptives, the patient does endorse recent immobility following her recent Achilles tendon repair. I would recommend a minimum of 6 months of anticoagulation therapy. She has been transitioned from a heparin drip over to Xarelto. Unfortunately, her hypercoagulable workup was drawn after the initiation of the heparin drip, therefore invalid. A surface echocardiogram is currently pending. Troponins are downtrending. Perform walking oximetry study prior to consideration for discharge from the hospital. It is highly likely that the patient will have a new supplemental oxygen requirement. She will require a close interval follow-up office visit with our nurse practitioner within 2 weeks of her discharge. Her ongoing need for supplemental oxygen can be reassessed at that time. 2. Troponin elevation/mild RV dysfunction and pulmonary hypertension Likely secondary to cardiac strain imposed by extensive clot burden. This should resolve with time and appropriate anticoagulation therapy. Plan to reassess with repeat outpatient echocardiogram. This note was generated with [employer] dictation software. It may contain incorrect words, spelling, and punctuation that were not noted in checking the note before signing.
--- NOTE | 2017-11-14 10:37 | PN_ITS ---
Patient Problems: Active and Suspected Problems Bilateral pulmonary embolism (Acute) Subjective: Patient seen and examined. Reports her chest pain has resolved, but still has significant heaviness. Still having significant dyspnea on exertion. Ambulatory pulse ox has not yet been completed. Remains afebrile and hemodynamically stable. Objective: Clinical Impression(s) from Imaging Studies Chest X-Ray 11/12/17 18:50 IMPRESSION: Normal x-ray examination of the chest. Electronically Signed: Juan Pastor MD at 19:15 EST , Service support , Chest CTA 11/12/17 19:17 IMPRESSION: Extensive pulmonary emboli as above N.B. : The above information has been verbally conveyed by Juan Pastor MD to Marcela Vinson on 11/12/2017 20:28:43 (ET). Electronically Signed: Juan Pastor MD at 20:27 EST , Service support , N.B. : The above information has been verbally conveyed by Juan Pastor MD to Marcela Vinson on 11/12/2017 20:28:43 (ET). Echocardiogram 11/13 showed normal LV systolic function, estimated EF of 55%, mild global right ventricular systolic dysfunction, and RVSP estimated 42 mmHg, c/w mild pulmonary hypertension. - Physical Exam General: Alert, Oriented x3, Cooperative, - - short of breath secondary to just returning from bathroom/ambulation HEENT: Atraumatic, Normocephalic Oral: Moist Mucosa, No Gingival or Mucosal Lesions/ Ulcerations Neck: Supple, No Nodes, Trachea Midline Lungs: Clear to auscultation, No rhonchi, No wheeze, No rales Cardiovascular: Regular rate, Regular Rhythm, Normal S1, Normal S2, No murmurs, No rub noted, No Gallop Abdomen: Bowel Sounds Present, Soft, Non Tender, Non-Distended, Obese Extremities: No clubbing, No cyanosis, No edema, - - LLE cast. Toes pink, cap refill <3 sec Skin: No rashes, No breakdown, Incision - occluded by cast, did not visualize Musculoskeletal: No Tenderness to Palpation of Joints or Extremities Lymphatic: No Cervical, Supraclavicular, or Inguinal Adenopathy Neurological: Neuro grossly intact Psych/Mental Status: Alert and oriented to time, place, person, mood and affect Vital Signs Temp Pulse Resp BP Pulse Ox 98.2 F 81 12 131/80 H 96 11/14/17 09:50 11/14/17 09:50 11/14/17 09:50 11/14/17 09:50 11/14/17 09:50 Oxygen Delivery Method Room Air Weight: 242 lb 11.663 oz Body Mass Index (BMI) 34.8 Intake and Output for Last 24 Hours 11/12/17 11/13/17 11/14/17 23:59 23:59 23:59 Intake Total 610.4 / 610.4 360 / 360 Output Total 0 / 0 Balance 610.4 / 610.4 360 / 360 Laboratory Tests Past 24 Hrs 11/14/17 11/14/17 07:20 07:20 WBC 6.3 RBC 4.33 Hgb 13.2 Hct 39.5 MCV 91.2 MCH 30.5 MCHC 33.4 RDW 12.2 RDW Differential 40.2 Plt Count 215 MPV 10.2 Sodium 143 Potassium 4.1 Chloride 108 H Carbon Dioxide 29.0 Anion Gap 6 BUN 13 Creatinine 0.97 Estim Creat Clear Calc 85.87 Est GFR (MDRD) Af Amer 83 Est GFR (MDRD) Non-Af 68 BUN/Creatinine Ratio 13.3 Glucose 108 Calcium 8.4 L Total Bilirubin 0.30 AST 12 L ALT 28 Alkaline Phosphatase 87 Total Protein 6.7 Albumin 3.0 L Globulin 3.7 Albumin/Globulin Ratio 0.8 L Triglycerides 77 Cholesterol 173 LDL Cholesterol 110 VLDL Cholesterol 15 HDL Cholesterol 48 Assessment/Plan Active and Suspected Problems Bilateral pulmonary embolism (Acute) RECOMMENDATIONS: 1. Continue Xarelto. 2. Encourage incentive spirometer use and mobilize patient as tolerated 3. Walking oximetry prior to discharge from the hospital. She will likely have an oxygen requirement. This can be reassessed at her follow-up office visit. 4. Patient will require repeat echocardiogram, will be arranged at her follow- up appointment. 5. Recommend follow-up in the pulmonary medicine clinic within 2 weeks of her discharge from the hospital. IMPRESSIONS: 1. Submassive pulmonary embolism Despite the patient's extensive clot burden, she has remained hemodynamically stable. Aside from the use of oral contraceptives, the patient does endorse recent immobility following her recent Achilles tendon repair. I would recommend a minimum of 6 months of anticoagulation therapy. She has been transitioned from a heparin drip over to Xarelto. Unfortunately, her hypercoagulable workup was drawn after the initiation of the heparin drip, therefore invalid. A surface echocardiogram is currently pending. Troponins are downtrending. Perform walking oximetry study prior to consideration for discharge from the hospital. It is highly likely that the patient will have a new supplemental oxygen requirement. She will require a close interval follow- up office visit with our nurse practitioner within 2 weeks of her discharge. Her ongoing need for supplemental oxygen can be reassessed at that time. 2. Troponin elevation/mild RV dysfunction and pulmonary hypertension Likely secondary to cardiac strain imposed by extensive clot burden. This should resolve with time and appropriate anticoagulation therapy. Plan to reassess with repeat outpatient echocardiogram. This note was generated with [employer] dictation software. It may contain incorrect words, spelling, and punctuation that were not noted in checking the note before signing.
--- NOTE | 2017-11-14 11:19 | CASEMGMT ---
Xarelto script tubed to [facility] retail pharmacy at this time after ok from pt to have script filled here to check on co-pay. Xarelto Co-pay card applied and pt will have $10 co-pay, pt updated at this time and pharmacy to deliver med to pt. Page sent to Dr. Serra at this time, updating her. Heraclio BARROSO CM
[2017-11-14 14:15] LABS: Dilute Russell Viper Venom 39.2 sec (0.0-47.0)
--- NOTE | 2017-11-14 18:21 | PCM.DC ---
- Discharge Diagnoses Current Active Problems: Current Active and Chronic Problems Bilateral pulmonary embolism (Acute) You will use the following diet at home:: No restrictions Your food should be the consistency of: Regular Your liquids should be the consistency of: Regular/Thin Discharge Activity: - - Activity as tolerated. No dangerous activities such as Bungie jumping, hang gliding, rupal diving, zip lining while taking Xarelto May resume sexual activity in: No Restrictions Weight Bearing Status: - - Continue previous orders for weight bearing after Achilles tendon repair Call your doctor if you observe: Fever of 101 or Higher, Shortness of breath, Dizziness, Fainting spells, Swelling in the ankles, Chest pain, Uncontrolled pain, - - coughing up blood, bleeding from the nose, mouth or rectum Instructions: Pulmonary Embolism Additional Instructions: No control pills until you talk with Dr. Banks. Do not start smoking because it is a risk factor for blood clots. You will need to take the anticoagulant for at least 6 months. You had MANY pulmonary emboli and it has caused a strain on the right heart and increased BP in the lungs. You are going to need to follow up with Shannan in Dr. Horner's office in 2 weeks. The Echocardiogram will need to be repeated in the future to see in the right heart strain and the pulmonary hypertension resolve with treatment with anticoagulation. You are going to bleed more easily than normal if you get as cut because of the anticoagulant so if you get a cut hold pressure on it for 10 miutes with no peaking. If you get a bruise put ice on KRISTIAN for 15 minutews to limit the size of the bruise. Let the surgeon know that you are on a blood thinner for pulmonary emboli. Pending Tests on Discharge: Hypercoagulable testing. Allergies/Adverse Reactions: Allergies doxycycline Adverse Reaction (Verified 11/12/17 18:38) Vomiting Medications to take at Discharge Cholecalciferol (Vitamin D3) [Vitamin D3] 5,000 units PO QHS 09/12/16 Fluoxetine [Prozac] 20 mg PO QHS 09/12/16 Hyoscyamine Sulfate [Hyoscyamine Sulfate ER] 0.375 mg PO QHS 09/12/16 L.acidoph,Paracasei, B.lactis [Probiotic] 1 each PO DAILY 09/12/16 Rivaroxaban [Xarelto] 1 tab PO UD #51 tab 11/13/17 Acetaminophen [Tylenol Tablet] 650 mg PO Q4H PRN PRN tablet 11/14/17 The following prescriptions were given: Rivaroxaban [Xarelto] 1 tab PO UD #51 tab Primary Care Physician: Lester Harrington DO [Primary Care Provider] - Please follow up with your Primary Care Physician in: 5-7 days Please Follow Up With: Darian Horner DO When: 2 weeks Proposed Discharge Date: 11/14/17
--- NOTE | 2017-11-14 18:45 | PCM.DC.SUM ---
Discharge Date and Diagnosis - Problem List Patient Problems: Active and Suspected Problems Bilateral pulmonary embolism (Acute) Date of Admission: 11/12/17 Date of Discharge: 11/14/17 - Primary Discharge Diagnosis Active and Suspected Problems Extensive Bilateral pulmonary emboli (Acute) Elevated troponin due to acute R heart strain Acute Pulmonary HTN - Secondary Discharge Diagnosis Chronic Problems IBS (irritable bowel syndrome) (Chronic) Asthmatic bronchitis (Chronic) menorrhagia on BCP's Anxiety/depression on an SSRI Hospital Course and Treatment Imaging Results: Clinical Impression(s) from Imaging Studies Chest X-Ray 11/12/17 18:50 IMPRESSION: Normal x-ray examination of the chest. Electronically Signed: Juan Pastor MD at 19:15 EST , Service support , Chest CTA 11/12/17 19:17 IMPRESSION: Extensive pulmonary emboli as above N.B. : The above information has been verbally conveyed by Juan Pastor MD to Marcela Vinson on 11/12/2017 20:28:43 (ET). Electronically Signed: Juan Pastor MD at 20:27 EST , Service support , N.B. : The above information has been verbally conveyed by Juan Pastor MD to Marcela Vinson on 11/12/2017 20:28:43 (ET). Laboratory Tests 11/12/17 11/12/17 11/12/17 19:03 19:03 19:03 WBC 11.7 H RBC 4.81 Hgb 14.6 Hct 42.8 MCV 89.0 MCH 30.4 MCHC 34.1 RDW 12.1 RDW Differential 39.0 Plt Count 247 MPV 10.3 Immature Gran % (Auto) 0.300 Neut % (Auto) 68.2 Lymph % (Auto) 20.1 Bullock % (Auto) 9.6 Eos % (Auto) 1.5 Baso % (Auto) 0.3 Absolute Neuts (auto) 8.0 H Absolute Lymphs (auto) 2.35 Total Counted Not Reportable APTT D-Dimer Quant (PE/DVT) 11.81 H* Dil Silvestre Viper Venom Sodium 140 Potassium 3.6 Chloride 109 H Carbon Dioxide 21.0 Anion Gap 10 BUN 13 Creatinine 0.87 Estim Creat Clear Calc 95.74 Est GFR (MDRD) Af Amer 94 Est GFR (MDRD) Non-Af 77 BUN/Creatinine Ratio 14.9 Glucose 98 Calcium 9.2 Total Bilirubin AST ALT Alkaline Phosphatase Troponin I 1.03 H* Total Protein Albumin Globulin Albumin/Globulin Ratio Triglycerides Cholesterol LDL Cholesterol VLDL Cholesterol HDL Cholesterol Serum , Qual 11/12/17 11/12/17 11/12/17 19:03 19:03 22:40 WBC RBC Hgb Hct MCV MCH MCHC RDW RDW Differential Plt Count MPV Immature Gran % (Auto) Neut % (Auto) Lymph % (Auto) Bullock % (Auto) Eos % (Auto) Baso % (Auto) Absolute Neuts (auto) Absolute Lymphs (auto) Total Counted APTT 28.6 D-Dimer Quant (PE/DVT) Dil Silvestre Viper Venom Sodium Potassium Chloride Carbon Dioxide Anion Gap BUN Creatinine Estim Creat Clear Calc Est GFR (MDRD) Af Amer Est GFR (MDRD) Non-Af BUN/Creatinine Ratio Glucose Calcium Total Bilirubin AST ALT Alkaline Phosphatase Troponin I 0.90 H* Total Protein Albumin Globulin Albumin/Globulin Ratio Triglycerides Cholesterol LDL Cholesterol VLDL Cholesterol HDL Cholesterol Serum , Qual NEGATIVE 11/13/17 11/13/17 11/13/17 02:30 02:30 03:00 WBC RBC Hgb Hct MCV MCH MCHC RDW RDW Differential Plt Count MPV Immature Gran % (Auto) Neut % (Auto) Lymph % (Auto) Bullock % (Auto) Eos % (Auto) Baso % (Auto) Absolute Neuts (auto) Absolute Lymphs (auto) Total Counted APTT 73.8 H D-Dimer Quant (PE/DVT) Dil Silvestre Viper Venom 39.2 Sodium Potassium Chloride Carbon Dioxide Anion Gap BUN Creatinine Estim Creat Clear Calc Est GFR (MDRD) Af Amer Est GFR (MDRD) Non-Af BUN/Creatinine Ratio Glucose Calcium Total Bilirubin AST ALT Alkaline Phosphatase Troponin I 0.55 H Total Protein Albumin Globulin Albumin/Globulin Ratio Triglycerides Cholesterol LDL Cholesterol VLDL Cholesterol HDL Cholesterol Serum , Qual 11/13/17 11/13/17 11/13/17 05:35 05:35 08:20 WBC 8.2 RBC 4.43 Hgb 13.6 Hct 40.0 MCV 90.3 MCH 30.7 MCHC 34.0 RDW 12.3 RDW Differential 39.7 Plt Count 247 MPV 10.6 Immature Gran % (Auto) Neut % (Auto) Lymph % (Auto) Bullock % (Auto) Eos % (Auto) Baso % (Auto) Absolute Neuts (auto) Absolute Lymphs (auto) Total Counted APTT D-Dimer Quant (PE/DVT) Dil Silvestre Viper Venom Sodium 140 Potassium 4.0 Chloride 105 Carbon Dioxide 27.0 Anion Gap 8 BUN 13 Creatinine 0.88 Estim Creat Clear Calc 94.65 Est GFR (MDRD) Af Amer 93 Est GFR (MDRD) Non-Af 77 BUN/Creatinine Ratio 14.8 Glucose 121 H Calcium 8.8 Total Bilirubin AST ALT Alkaline Phosphatase Troponin I 0.33 H Total Protein Albumin Globulin Albumin/Globulin Ratio Triglycerides Cholesterol LDL Cholesterol VLDL Cholesterol HDL Cholesterol Serum , Qual 11/13/17 11/14/17 11/14/17 08:20 07:20 07:20 WBC 6.3 RBC 4.33 Hgb 13.2 Hct 39.5 MCV 91.2 MCH 30.5 MCHC 33.4 RDW 12.2 RDW Differential 40.2 Plt Count 215 MPV 10.2 Immature Gran % (Auto) Neut % (Auto) Lymph % (Auto) Bullock % (Auto) Eos % (Auto) Baso % (Auto) Absolute Neuts (auto) Absolute Lymphs (auto) Total Counted APTT 56.7 H D-Dimer Quant (PE/DVT) Dil Silvestre Viper Venom Sodium 143 Potassium 4.1 Chloride 108 H Carbon Dioxide 29.0 Anion Gap 6 BUN 13 Creatinine 0.97 Estim Creat Clear Calc 85.87 Est GFR (MDRD) Af Amer 83 Est GFR (MDRD) Non-Af 68 BUN/Creatinine Ratio 13.3 Glucose 108 Calcium 8.4 L Total Bilirubin 0.30 AST 12 L ALT 28 Alkaline Phosphatase 87 Troponin I Total Protein 6.7 Albumin 3.0 L Globulin 3.7 Albumin/Globulin Ratio 0.8 L Triglycerides 77 Cholesterol 173 LDL Cholesterol 110 VLDL Cholesterol 15 HDL Cholesterol 48 Serum , Qual Dr. Darian Horner - pulmonary medicine Operations: None Procedures: 2-D Echocardiogram Summary of Care Provided: Patient is a 37-year-old female with a history of asthma, menorrhagia (on BCP's) and irritable bowel syndrome who had an Achilles tendon repair on 10/23/2017 and subsequently had a cast placed. She had been on ASA 325 mg daily only a few days for DVT prophylaxis. She presented to the emergency department at [facility] on 11/12/2017 complaining of sudden onset chest pain which worsened with a deep breath. Vital signs at presentation to the emergency room were temp 98.5, pulse rate 111, blood pressure 147/93, respiratory rate 19 and she was 98-100% saturated on room air. Significant lab included a d-dimer of 11.81 and a troponin of 1.03. CTA of the chest showed occlusive filling defects within the right and left main pulmonary arteries with no saddle embolism. The filling defects extended into all the lobar and segmental branches bilaterally. She was admitted to a monitored bed on PCU with a diagnosis of extensive pulmonary emboli and she was started on a continuous heparin drip. A hypercoagulable panel was ordered but it was drawn after the patient already received Heparin and this invalidates the results. Troponin decreased after admission. ECHO was done and was consistent with RV strain and pulmonary HTN due to the extensive clot burden. She was seen in consult by Dr. Darian Horner from pulmonary. He will see her in 2 weeks post DC for follow up for pulmonary HTN. She will need a follow up ECHO going forward to follow the progression of the pulmonary HTN. She was transitioned to Xarelto and will take 15 mg q 12H for 3 weeks and then start 20 mg once daily. Ambulatory pulse ox was obtained prior to discharge and the pulse ox on room air at rest was 96% and with ambulation on room air was 95%. She denied any chest discomfort at the time of discharge. Vital signs at discharge were temperature 99.2, heart rate 84, blood pressure 130/82, pulse rate 16 and she was 95% saturated on room air. Telemetry monitoring showed no significant ventricular ectopy during her hospital stay. She is going to follow-up with her primary care physician, Dr. Lester Harrington, in 5-7 days and will not return to work until okayed by Dr. Harrington. She was instructed to notify her surgeon that she had been in the hospital for pulmonary emboli and was now on full dose anticoagulation. She will schedule a follow-up appointment with Dr. Banks to discuss menorrhagia and tx going forward since she will no longer be taking her current BCP. At the time of discharge she had no conversational dyspnea and no tachypnea. She appeared to be in no acute distress. Auscultation of lungs revealed good air exchange throughout with no rales, rhonchi or wheezes. The heart had a regular rate and rhythm with a normal S1, normal S2 with no gallop. This note was generated with [employer] dictation software. It may contain incorrect words, spelling, and punctuation that were not noted in checking the note before signing. Discharge Diet: No Restrictions Discharge Activity: - - Activity as tolerated. No dangerous activities such as Bungie jumping, hang gliding, rupal diving, zip lining while taking Xarelto May resume sexual activity in: No Restrictions Weight Bearing Status: - - Continue previous orders for weight bearing after Achilles tendon repair Call your doctor if you observe: Fever of 101 or Higher, Shortness of breath, Dizziness, Fainting spells, Swelling in the ankles, Chest pain, Uncontrolled pain, - - coughing up blood, bleeding from the nose, mouth or rectum Home Medications: Medications to take at Discharge Cholecalciferol (Vitamin D3) [Vitamin D3] 5,000 units PO QHS 09/12/16 Fluoxetine [Prozac] 20 mg PO QHS 09/12/16 Hyoscyamine Sulfate [Hyoscyamine Sulfate ER] 0.375 mg PO QHS 09/12/16 L.acidoph,Paracasei, B.lactis [Probiotic] 1 each PO DAILY 09/12/16 Rivaroxaban [Xarelto] 1 tab PO UD #51 tab 11/13/17 Acetaminophen [Tylenol Tablet] 650 mg PO Q4H PRN PRN tablet 11/14/17 Following Prescrptions Were Given to Patient: Rivaroxaban [Xarelto] 1 tab PO UD #51 tab Primary Care Physician: Lester Harrington DO [Primary Care Provider] - Please follow up with your Primary Care Physician in: 5-7 days Please Follow Up With: Darian Horner DO When: 2 weeks Patient Instructions: Pulmonary Embolism Pending Tests Upon Discharge: hypercoagulable panel Disposition: Home Minutes spent on discharge:: 35 Patient Condition:: Stable Meaningful Use Info Meaningful Use Diagnoses (Choose all that apply): VTE - VTE Anticoag overlap given w/in hospital stay or rx'd at [place]?: No Pt receive overlap for 5 days?: No Reason overlap not ordered, prescribed, or given for 5 days: Treatment Not Indicated - being discharged on Xarelto Code Visit Inpatient E&M: 94210 Disch Hosp
--- NOTE | 2017-11-14 19:00 | DS.PCM_ITS ---
Discharge Date and Diagnosis - Problem List Patient Problems: Active and Suspected Problems Bilateral pulmonary embolism (Acute) Date of Admission: 11/12/17 Date of Discharge: 11/14/17 - Primary Discharge Diagnosis Active and Suspected Problems Extensive Bilateral pulmonary emboli (Acute) Elevated troponin due to acute R heart strain Acute Pulmonary HTN - Secondary Discharge Diagnosis Chronic Problems IBS (irritable bowel syndrome) (Chronic) Asthmatic bronchitis (Chronic) menorrhagia on BCP's Anxiety/depression on an SSRI Hospital Course and Treatment Imaging Results: Clinical Impression(s) from Imaging Studies Chest X-Ray 11/12/17 18:50 IMPRESSION: Normal x-ray examination of the chest. Electronically Signed: Juan Pastor MD at 19:15 EST , Service support , Chest CTA 11/12/17 19:17 IMPRESSION: Extensive pulmonary emboli as above N.B. : The above information has been verbally conveyed by Juan Pastor MD to Marcela Vinson on 11/12/2017 20:28:43 (ET). Electronically Signed: Juan Pastor MD at 20:27 EST , Service support , N.B. : The above information has been verbally conveyed by Juan Pastor MD to Mracela Vinson on 11/12/2017 20:28:43 (ET). Laboratory Tests 11/12/17 11/12/17 11/12/17 19:03 19:03 19:03 WBC 11.7 H RBC 4.81 Hgb 14.6 Hct 42.8 MCV 89.0 MCH 30.4 MCHC 34.1 RDW 12.1 RDW Differential 39.0 Plt Count 247 MPV 10.3 Immature Gran % (Auto) 0.300 Neut % (Auto) 68.2 Lymph % (Auto) 20.1 Free[place] % (Auto) 9.6 Eos % (Auto) 1.5 Baso % (Auto) 0.3 Absolute Neuts (auto) 8.0 H Absolute Lymphs (auto) 2.35 Total Counted Not Reportable APTT D-Dimer Quant (PE/DVT) 11.81 H* Dil Silvestre Viper Venom Sodium 140 Potassium 3.6 Chloride 109 H Carbon Dioxide 21.0 Anion Gap 10 BUN 13 Creatinine 0.87 Estim Creat Clear Calc 95.74 Est GFR (MDRD) Af Amer 94 Est GFR (MDRD) Non-Af 77 BUN/Creatinine Ratio 14.9 Glucose 98 Calcium 9.2 Total Bilirubin AST ALT Alkaline Phosphatase Troponin I 1.03 H* Total Protein Albumin Globulin Albumin/Globulin Ratio Triglycerides Cholesterol LDL Cholesterol VLDL Cholesterol HDL Cholesterol Serum , Qual 11/12/17 11/12/17 11/12/17 19:03 19:03 22:40 WBC RBC Hgb Hct MCV MCH MCHC RDW RDW Differential Plt Count MPV Immature Gran % (Auto) Neut % (Auto) Lymph % (Auto) Free[place] % (Auto) Eos % (Auto) Baso % (Auto) Absolute Neuts (auto) Absolute Lymphs (auto) Total Counted APTT 28.6 D-Dimer Quant (PE/DVT) Dil Silvestre Viper Venom Sodium Potassium Chloride Carbon Dioxide Anion Gap BUN Creatinine Estim Creat Clear Calc Est GFR (MDRD) Af Amer Est GFR (MDRD) Non-Af BUN/Creatinine Ratio Glucose Calcium Total Bilirubin AST ALT Alkaline Phosphatase Troponin I 0.90 H* Total Protein Albumin Globulin Albumin/Globulin Ratio Triglycerides Cholesterol LDL Cholesterol VLDL Cholesterol HDL Cholesterol Serum , Qual NEGATIVE 11/13/17 11/13/17 11/13/17 02:30 02:30 03:00 WBC RBC Hgb Hct MCV MCH MCHC RDW RDW Differential Plt Count MPV Immature Gran % (Auto) Neut % (Auto) Lymph % (Auto) [place] % (Auto) Eos % (Auto) Baso % (Auto) Absolute Neuts (auto) Absolute Lymphs (auto) Total Counted APTT 73.8 H D-Dimer Quant (PE/DVT) Dil Silvestre Viper Venom 39.2 Sodium Potassium Chloride Carbon Dioxide Anion Gap BUN Creatinine Estim Creat Clear Calc Est GFR (MDRD) Af Amer Est GFR (MDRD) Non-Af BUN/Creatinine Ratio Glucose Calcium Total Bilirubin AST ALT Alkaline Phosphatase Troponin I 0.55 H Total Protein Albumin Globulin Albumin/Globulin Ratio Triglycerides Cholesterol LDL Cholesterol VLDL Cholesterol HDL Cholesterol Serum , Qual 11/13/17 11/13/17 11/13/17 05:35 05:35 08:20 WBC 8.2 RBC 4.43 Hgb 13.6 Hct 40.0 MCV 90.3 MCH 30.7 MCHC 34.0 RDW 12.3 RDW Differential 39.7 Plt Count 247 MPV 10.6 Immature Gran % (Auto) Neut % (Auto) Lymph % (Auto) [place] % (Auto) Eos % (Auto) Baso % (Auto) Absolute Neuts (auto) Absolute Lymphs (auto) Total Counted APTT D-Dimer Quant (PE/DVT) Dil Silvestre Viper Venom Sodium 140 Potassium 4.0 Chloride 105 Carbon Dioxide 27.0 Anion Gap 8 BUN 13 Creatinine 0.88 Estim Creat Clear Calc 94.65 Est GFR (MDRD) Af Amer 93 Est GFR (MDRD) Non-Af 77 BUN/Creatinine Ratio 14.8 Glucose 121 H Calcium 8.8 Total Bilirubin AST ALT Alkaline Phosphatase Troponin I 0.33 H Total Protein Albumin Globulin Albumin/Globulin Ratio Triglycerides Cholesterol LDL Cholesterol VLDL Cholesterol HDL Cholesterol Serum , Qual 11/13/17 11/14/17 11/14/17 08:20 07:20 07:20 WBC 6.3 RBC 4.33 Hgb 13.2 Hct 39.5 MCV 91.2 MCH 30.5 MCHC 33.4 RDW 12.2 RDW Differential 40.2 Plt Count 215 MPV 10.2 Immature Gran % (Auto) Neut % (Auto) Lymph % (Auto) Free[place] % (Auto) Eos % (Auto) Baso % (Auto) Absolute Neuts (auto) Absolute Lymphs (auto) Total Counted APTT 56.7 H D-Dimer Quant (PE/DVT) Dil Silvestre Viper Venom Sodium 143 Potassium 4.1 Chloride 108 H Carbon Dioxide 29.0 Anion Gap 6 BUN 13 Creatinine 0.97 Estim Creat Clear Calc 85.87 Est GFR (MDRD) Af Amer 83 Est GFR (MDRD) Non-Af 68 BUN/Creatinine Ratio 13.3 Glucose 108 Calcium 8.4 L Total Bilirubin 0.30 AST 12 L ALT 28 Alkaline Phosphatase 87 Troponin I Total Protein 6.7 Albumin 3.0 L Globulin 3.7 Albumin/Globulin Ratio 0.8 L Triglycerides 77 Cholesterol 173 LDL Cholesterol 110 VLDL Cholesterol 15 HDL Cholesterol 48 Serum , Qual Dr. Darian Horner - pulmonary medicine Operations: None Procedures: 2-D Echocardiogram Summary of Care Provided: Patient is a 37-year-old female with a history of asthma, menorrhagia (on BCP's ) and irritable bowel syndrome who had an Achilles tendon repair on 10/23/2017 and subsequently had a cast placed. She had been on ASA 325 mg daily only a few days for DVT prophylaxis. She presented to the emergency department at [facility] on 11/12/2017 complaining of sudden onset chest pain which worsened with a deep breath. Vital signs at presentation to the emergency room were temp 98.5, pulse rate 111, blood pressure 147/93, respiratory rate 19 and she was 98-100% saturated on room air. Significant lab included a d-dimer of 11.81 and a troponin of 1.03. CTA of the chest showed occlusive filling defects within the right and left main pulmonary arteries with no saddle embolism. The filling defects extended into all the lobar and segmental branches bilaterally. She was admitted to a monitored bed on PCU with a diagnosis of extensive pulmonary emboli and she was started on a continuous heparin drip. A hypercoagulable panel was ordered but it was drawn after the patient already received Heparin and this invalidates the results. Troponin decreased after admission. ECHO was done and was consistent with RV strain and pulmonary HTN due to the extensive clot burden. She was seen in consult by Dr. Darian Horner from pulmonary. He will see her in 2 weeks post DC for follow up for pulmonary HTN. She will need a follow up ECHO going forward to follow the progression of the pulmonary HTN. She was transitioned to Xarelto and will take 15 mg q 12H for 3 weeks and then start 20 mg once daily. Ambulatory pulse ox was obtained prior to discharge and the pulse ox on room air at rest was 96% and with ambulation on room air was 95%. She denied any chest discomfort at the time of discharge. Vital signs at discharge were temperature 99.2, heart rate 84, blood pressure 130/82, pulse rate 16 and she was 95% saturated on room air. Telemetry monitoring showed no significant ventricular ectopy during her hospital stay. She is going to follow-up with her primary care physician, Dr. Lester Harrington, in 5-7 days and will not return to work until okayed by Dr. Harrington. She was instructed to notify her surgeon that she had been in the hospital for pulmonary emboli and was now on full dose anticoagulation. She will schedule a follow-up appointment with Dr. Banks to discuss menorrhagia and tx going forward since she will no longer be taking her current BCP. At the time of discharge she had no conversational dyspnea and no tachypnea. She appeared to be in no acute distress. Auscultation of lungs revealed good air exchange throughout with no rales, rhonchi or wheezes. The heart had a regular rate and rhythm with a normal S1, normal S2 with no gallop. This note was generated with [employer] dictation software. It may contain incorrect words, spelling, and punctuation that were not noted in checking the note before signing. Discharge Diet: No Restrictions Discharge Activity: - - Activity as tolerated. No dangerous activities such as Bungie jumping, hang gliding, rupal diving, zip lining while taking Xarelto May resume sexual activity in: No Restrictions Weight Bearing Status: - - Continue previous orders for weight bearing after Achilles tendon repair Call your doctor if you observe: Fever of 101 or Higher, Shortness of breath, Dizziness, Fainting spells, Swelling in the ankles, Chest pain, Uncontrolled pain, - - coughing up blood, bleeding from the nose, mouth or rectum Home Medications: Medications to take at Discharge Cholecalciferol (Vitamin D3) [Vitamin D3] 5,000 units PO QHS 09/12/16 Fluoxetine [Prozac] 20 mg PO QHS 09/12/16 Hyoscyamine Sulfate [Hyoscyamine Sulfate ER] 0.375 mg PO QHS 09/12/16 L.acidoph,Paracasei, B.lactis [Probiotic] 1 each PO DAILY 09/12/16 Rivaroxaban [Xarelto] 1 tab PO UD #51 tab 11/13/17 Acetaminophen [Tylenol Tablet] 650 mg PO Q4H PRN PRN tablet 11/14/17 Following Prescrptions Were Given to Patient: Rivaroxaban [Xarelto] 1 tab PO UD #51 tab Primary Care Physician: Lester Harrington DO [Primary Care Provider] - Please follow up with your Primary Care Physician in: 5-7 days Please Follow Up With: Darian Horner DO When: 2 weeks Patient Instructions: Pulmonary Embolism Pending Tests Upon Discharge: hypercoagulable panel Disposition: Home Minutes spent on discharge:: 35 Patient Condition:: Stable Meaningful Use Info Meaningful Use Diagnoses (Choose all that apply): VTE - VTE Anticoag overlap given w/in hospital stay or rx'd at [place]?: No Pt receive overlap for 5 days?: No Reason overlap not ordered, prescribed, or given for 5 days: Treatment Not Indicated - being discharged on Xarelto Code Visit Inpatient E&M: [id number] Disch Hosp
[2017-11-17 16:09] LABS: Antithrombin 3 Function 64 % (75-135); Protein C Antigen 121 % (60-150)
[2017-11-18 08:59] LABS: Anti-Cardiolipin Ab, IgG, Qn < 9 GPL U/mL (0-14); Anti-Cardiolipin Ab, IgM, Qn < 9 MPL U/mL (0-12); Anti-Thrombin 3 AG, Immunol 85 % (72-124); Beta-2-Glycoprotein I IgA <9 (0-25); Beta-2-Glycoprotein I IgG <9 (0-20); Beta-2-Glycoprotein I IgM <9 (0-32); Protein C, Functional > 199 % (73-180)
== END 2017-11-14 20:05 | disposition home or self-care (01) | DRG 176 ==
LOC: ED 21:01 → PCU 21:35
PROVIDERS: Admitting Provider Internal Medicine; Emergency Provider Emergency Medicine; Family Provider Student in an Organized Health Care Education/Training Program; PCP Student in an Organized Health Care Education/Training Program; Visit Provider Internal Medicine
DX: I26.99 Other pulmonary embolism without acute cor pulmonale (principal); I27.20 Pulmonary hypertension, unspecified; J42 Unspecified chronic bronchitis; K58.9 Irritable bowel syndrome, unspecified; J45.909 Unspecified asthma, uncomplicated; E66.9 Obesity, unspecified; F41.9 Anxiety disorder, unspecified; F32.9 Major depressive disorder, single episode, unspecified; Z68.34 Body mass index [BMI] 34.0-34.9, adult; Z87.891 Personal history of nicotine dependence; N92.0 Excessive and frequent menstruation with regular cycle
CPT/HCPCS: 36415; 71045; 71275; 80048; 80053; 80061; 81240; 81241; 84484; 84703; 85025; 85027; 85300; 85301; 85302; 85303; 85379; 85613; 85730; 86146; 86147; 93005; 93306; 99285; J7030; Q9957; Q9967; A4216; J2405

== ENCOUNTER 2017-12-15 19:44 | Emergency (ER) | payer OTHER, SELFPAY ==
[2017-12-15 19:45] VITALS: BP 144/93; PULSE 74; RESP 16; TEMP 36.9; O2SAT 99; BMI 35.2
[2017-12-15] MEDS: 0.9% Normal Saline 1,000 ML 1000 ML IV (20:32)
[2017-12-15 20:34] LABS: Absolute Lymphocyte Count 2.75 X10^3/ul (0.83-4.51); Absolute Neutrophil Count 2.8 X10^3/uL (2.0-7.7); Basophil# 0.04 X10^3/uL; Basophil% 0.6 % (0-1); Eosinophil# 0.23 X10^3/uL; Eosinophils% 3.6 % (0-5); Hematocrit 40.2 % (37-47); Hemoglobin 13.5 g/dl (12.0-15.0); Lymphocyte # 2.75 X10^3/ul (4.0); Lymphocyte % 43.4 % (19-41); Mean Corp Hgb Conc 33.6 g/gl (32-36); Mean Corpuscular Hgb 30.3 pg (27.0-32.0); Mean Corpuscular Volume 90.1 fL (81-99); Mean Platelet Vol. 9.7 fl (6.2-12.0); Monocyte# 0.52 X10^3/uL; Monocyte% 8.2 % (0-10); Neutrophil # 2.78 X10^3/uL (2.7-7.7); POSITIVE COUNT NO; POSITIVE DIFFERENTIAL NO; POSITIVE MORPHOLOGY NO; Platelet Count 269 K/mm3 (150-450); RBC Distribution Width CV 12.4 % (11.6-14.6); RBC Distribution Width SD 40.5 fl (35.1-43.9); Red Blood Count 4.46 M/mm3 (4.2-5.4); White Blood Count 6.3 K/mm3 (4.4-11.0)
[2017-12-15 20:40] VITALS: BP 134/77; BP 141/94; BP 148/90; PULSE 68; PULSE 71; PULSE 78
[2017-12-15 20:40] LABS: International Normalized Ratio 1.3; Prothrombin Time (Protime)PT. 15.8 SECONDS (11.7-14.9)
[2017-12-15 20:41] LABS: Partial Thromboplast Time 36.5 Seconds (24.1-36.2)
[2017-12-15 20:52] LABS: Anion Gap 5 (5-15); BUN 13 mg/dL (7-18); BUN/Creat Ratio 15.8 RATIO (10-20); Calcium,Total 8.6 mg/dL (8.5-10.1); Chloride 107 mmol/L (98-107); Creatinine, Serum 0.82 mg/dL (0.55-1.02); EST Glomerular Filtration Rate 83 mL/min (>60); Est Glom Filt Rate - Afr Amer 100 mL/min (>60); Estimated Creatinine Clearance 101.58 ml/min; Glucose 94 mg/dL (74-106); Potassium 3.8 mmol/L (3.5-5.1); Sodium Level 142 mmol/L (136-145)
[2017-12-15 20:59] LABS: Pregnancy, Serum, hCG Quali. NEGATIVE Negative (0-9 Nonpreg)
--- NOTE | 2017-12-15 21:25 | ED.VISSUMM ---
- ER Visit Summary Date of Service: 12/15/17 Chief Complaint: Vaginal bleeding History of Present Illness: The patient is a [address] Varner and Dr. Harrington. She reports that she had surgery on her left foot in October. The end of October she was diagnosed with a PE. She was taken off her control pills and placed on Xarelto. She reports that she had not had a menstrual period for quite some time. Patient reports that her first period since beginning Xarelto started 1 week ago. She reports the bleeding is gradually increased. Is become much more heavy over the past 24 hours. She reports that she is changing a super tampon, overnight pad, an adult diaper once an hour. She does report she had heavy periods when she was younger and that was why she was placed on control. Patient denies any shortness of breath, chest pain, or abdominal pain. Physical Examination: Vitals: Stable. Afebrile. General: Well-nourished and well-developed. Head: Normocephalic atraumatic. Neck: Supple, no lymphadenopathy. No JVD. Nontender. Cardiovascular: Regular rate and rhythm. No murmurs. Respiratory: No respiratory distress. Clear to auscultation bilaterally. Abdominal: Soft, nontender, nondistended, normal bowel sounds. No guarding, rebound, or peritoneal signs. Back: Nontender. Extremities: Nontender, no edema. Skin: Normal color, no rash. Neurologic: Alert and oriented ?3. Cranial nerves II through XII are intact. Normal strength and sensation. Psych: Normal affect. Test Results: CBC is remarkable for a hemoglobin of 13.5 and hematocrit of 40.2. Chem-7 is normal. INR is 1.3. PTT is 36.5. test is negative. Emergency Department Course and Treatment: She had negative orthostatic vital signs while here. In fact her heart rate was in the low 70s. Treatment Plan: Patient was discussed with Dr. Peterson. She will be discharged instructions to follow-up Dr. Banks 3-5 days if not improving. Return to the emergency department for any worsening symptoms. Disposition: To home in improved and stable condition. Impression: 1. Menorrhagia. 2. Coagulopathy on Xarelto. 3. History of PE. This note was generated with [employer] software. It may contain incorrect words, spelling, and punctuation that were not noted in review of the chart prior to signing ED Disposition - Plan for ED Patient: Disposition: Home or Assisted Living Chief Complaint: Vag Bleeding Instructions: ED Bleeding Menstrual Heavy Referrals: Amber Banks MD [STAFF PHYSICIAN] - 3-5 Days
--- NOTE | 2017-12-15 21:51 | ED.RN ---
IV DC'ED, CATHETER INTACT, SMALL GAUZE DRESSING PLACED. DISCHARGE INSTRUCTIONS GIVEN TO AND REVIEWED WITH PATIENT, PATIENT DENIES QUESTIONS OR CONCERNS AND VOICES UNDERSTANDING OF DISCHARGE INSTRUCTIONS. PT AMBULATES OUT OF ROOM WITHOUT DIFFICULTY.
== END 2017-12-15 21:52 | disposition home or self-care (01) ==
LOC: ED 20:07
PROVIDERS: Emergency Provider Emergency Medicine; Family Provider Student in an Organized Health Care Education/Training Program; PCP Student in an Organized Health Care Education/Training Program
DX: N92.0 Excessive and frequent menstruation with regular cycle (principal); D68.9 Coagulation defect, unspecified; Z86.711 Personal history of pulmonary embolism; Z79.01 Long term (current) use of anticoagulants; Z79.3 Long term (current) use of hormonal contraceptives
CPT/HCPCS: 80048; 84703; 85025; 85610; 85730; 99284; J7030; A4216

== ENCOUNTER → 2017-12-20 11:20 | Outpatient (CLI) | payer OTHER, SELFPAY ==
--- NOTE | 2017-12-20 11:23 | US_ITS ---
STUDY: ULTRASOUND OF THE FEMALE PELVIS - COMPLETE REASON FOR EXAM: Female, 37 years old. Irregular menses TECHNIQUE: Transabdominal and Transvaginal TECHNICAL QUALITY: Adequate. COMPARISON: None. FINDINGS: The uterus is anteverted and is tilted to the right side of the pelvis. The uterus measures 8.4 x 4.4 x 4.1 cm. There is a Nabothian cyst of the cervix. The endometrium measures 9 mm in thickness, and is hyperechoic. Heterogeneously hypoattenuated mass within the lower uterine segment measuring 3.0 x 3.2 x 2.8 cm. There is a heterogeneously hypoattenuated mass posterior to the uterine body measuring 5.4 x 6.1 x 4.7 cm. No I.U.D. The right ovary is visualized. The right ovary measures 2.8 x 1.8 x 1.4 cm. There is no right ovarian cyst or ovarian mass. There is no visualized right adnexal mass or complex lesion. There is normal arterial and normal venous vascularity. The left ovary is visualized. The left ovary measures 1.6 x 1.3 x 1.5 cm. There is no left ovarian cyst or ovarian mass. There is no visualized left adnexal mass or complex lesion. There is normal arterial and normal venous vascularity. There is no fluid in the cul-de-sac. The pre void volume of the bladder was 75 ml. Polycystic ovary disease: No. US/Pelvic (Non ) IMPRESSION: Myomatous uterus Electronically Signed: Weston Wesley MD at 3:39 EST Tel , Service support ,
--- NOTE | 2017-12-20 11:34 | US_ITS ---
STUDY: ULTRASOUND OF THE FEMALE PELVIS - COMPLETE REASON FOR EXAM: Female, 37 years old. Irregular menses TECHNIQUE: Transabdominal and Transvaginal TECHNICAL QUALITY: Adequate. COMPARISON: None. FINDINGS: The uterus is anteverted and is tilted to the right side of the pelvis. The uterus measures 8.4 x 4.4 x 4.1 cm. There is a Nabothian cyst of the cervix. The endometrium measures 9 mm in thickness, and is hyperechoic. Heterogeneously hypoattenuated mass within the lower uterine segment measuring 3.0 x 3.2 x 2.8 cm. There is a heterogeneously hypoattenuated mass posterior to the uterine body measuring 5.4 x 6.1 x 4.7 cm. No I.U.D. The right ovary is visualized. The right ovary measures 2.8 x 1.8 x 1.4 cm. There is no right ovarian cyst or ovarian mass. There is no visualized right adnexal mass or complex lesion. There is normal arterial and normal venous vascularity. The left ovary is visualized. The left ovary measures 1.6 x 1.3 x 1.5 cm. There is no left ovarian cyst or ovarian mass. There is no visualized left adnexal mass or complex lesion. There is normal arterial and normal venous vascularity. There is no fluid in the cul-de-sac. The pre void volume of the bladder was 75 ml. Polycystic ovary disease: No. US/Transvaginal Non- IMPRESSION: Myomatous uterus Electronically Signed: Weston Wesley MD at 3:39 EST Tel , Service support ,
== END ==
PROVIDERS: Family Provider Student in an Organized Health Care Education/Training Program; PCP Student in an Organized Health Care Education/Training Program; Visit Provider Obstetrics & Gynecology
DX: N93.9 Abnormal uterine and vaginal bleeding, unspecified (principal); N92.6 Irregular menstruation, unspecified
CPT/HCPCS: 76830; 76856; 93976

== ENCOUNTER → 2017-12-20 12:22 | Outpatient (CLI) | payer OTHER, SELFPAY ==
[2017-12-20 13:32] LABS: Estradiol 96.3 pg/mL; Free T3 2.6 pg/mL (2.18-3.98); Prolactin 14.4 ng/mL; T4 Free Direct 1.03 ng/dL (0.76-1.46); Thyroid Stim Hormone (TSH) 1.95 uIU/mL (0.358-3.74)
[2017-12-20 13:35] LABS: Hemoglobin A1c 5.2 % (4.2-6.3)
[2017-12-20 13:49] LABS: Progesterone Level 0.32 ng/mL (See Comment)
== END ==
PROVIDERS: Family Provider Student in an Organized Health Care Education/Training Program; PCP Student in an Organized Health Care Education/Training Program; Visit Provider Obstetrics & Gynecology
DX: N93.9 Abnormal uterine and vaginal bleeding, unspecified (principal); N92.6 Irregular menstruation, unspecified
CPT/HCPCS: 36415; 82670; 83036; 84144; 84146; 84403; 84439; 84443; 84481

== ENCOUNTER → 2017-12-26 12:41 | Outpatient (CLI) | payer OTHER, SELFPAY ==
--- NOTE | 2017-12-26 12:42 | ECHOL_ITS ---
Reason For Study: dyspnea/SOB Procedure This was a limited 2D transthoracic echocardiogram. Exam performed in department. Left Ventricle Normal LV size. Left ventricular systolic function is lower limits of normal. The estimated ejection fraction is 53 %. No regional wall motion abnormalities noted. Right Ventricle Normal RV size. Normal systolic function. Tricuspid Valve Normal tricuspid valve. Mild (1+) tricuspid valve insufficiency. Pulmonary artery systolic pressure is 28 mmHg. Pericardium/Pleural No pericardial effusion. MMode/2D Measurements & Calculations LVIDd: 4.5 cm IVSd: 1.1 cm Ao root diam: 2.7 cm LVIDs: 3.0 cm LVPWd: 1.0 cm RVDd: 2.7 cm FS: 33.4 % LAV(MOD-bp): 43.9 ml LAV(MOD-bp) Indexed: 19.3 ml/m2 LA A4 area: 16.3 cm2 RA A4 area: 12.4 cm2 LAV(MOD-sp2): 46.2 ml LAV(MOD-sp4): 41.6 ml Doppler Measurements & Calculations PA V2 max: 96.2 cm/sec TR max rupinder: 244.3 cm/sec TR max P.9 mmHg Interpretation Summary Normal LV size. Left ventricular systolic function is lower limits of normal. The estimated ejection fraction is 53 %. Mild (1+) tricuspid valve insufficiency. Pulmonary artery systolic pressure is 28 mmHg. Limited views were obtained. Ordering Physician: Shannan Rodriguez Referring Physician: Lester Harrington Performed By: Renato, Gale, RDCS, RVT
== END ==
PROVIDERS: Family Provider Student in an Organized Health Care Education/Training Program; PCP Student in an Organized Health Care Education/Training Program; Visit Provider Nurse Practitioner Acute Care
DX: R06.09 Other forms of dyspnea (principal)
CPT/HCPCS: 93308

== ENCOUNTER 2018-02-15 15:40 | Emergency (ER) | payer OTHER, SELFPAY ==
[2018-02-15 15:41] VITALS: BP 156/91; PULSE 68; RESP 16; TEMP 36.6; O2SAT 100; BMI 36.0
--- NOTE | 2018-02-15 15:58 | CT_ITS ---
STUDY: CTA CHEST REASON FOR EXAM: Female, 37 years old. Shortness of breath and chest pain x2 days. Pulmonary embolism December 05 2017. RADIATION DOSAGE (If Supplied By Facility): CTDIvol = ( 16.32 ) mGy, DLP = ( 644.63 ) mGycm TECHNIQUE: The examination was performed with the intravenous administration of 100ML ml of Isovue 370 contrast material. Post-processing of the angiographic images was performed, with multiplanar reformation and 3D reconstruction. Individualized dose optimization techniques were used for this CT. COMPARISON: November 12, 2017 FINDINGS: Normal enhancement of the main pulmonary artery and right and left pulmonary arteries. Normal enhancement of the bilateral peripheral pulmonary arteries. There is no demonstrated pulmonary embolism. Normal thoracic aorta and visualized great vessels. There is no demonstrated aortic dissection. Normal heart and pericardium. Normal mediastinum. Normal hilar regions. Normal visualized trachea and bronchi. The lungs are well expanded. Normal pulmonary parenchyma. Normal pleura. Normal chest wall structures. Normal osseous structures. Normal visualized upper abdomen. CT/CTA Chest W/WO Contrast IMPRESSION: Normal CTA chest examination, without a demonstrated pulmonary embolism or arterial dissection. Electronically Signed: Juan Pastor MD at 17:14 EDT , Service support ,
--- NOTE | 2018-02-15 15:58 | EKG12_ITS ---
Test Reason : CP Blood Pressure : / mmHG Vent. Rate : 068 BPM Atrial Rate : 068 BPM P-R Int : 142 ms QRS Dur : 088 ms QT Int : 402 ms P-R-T Axes : 061 060 067 degrees QTc Int : 427 ms Normal sinus rhythm with sinus arrhythmia Normal ECG Confirmed by DOUGLAS HARRIS, [place] ([id number]), supervising film or videotape editor MARY GRACE OLSEN ([id number]) on 02/19/2018 1:47:24 PM Referred By: JACQUE/BRIAN Confirmed By:AZ COLE MD
--- NOTE | 2018-02-15 16:00 | ED.VISSUMM ---
- ER Visit Summary Date of Service: 02/15/18 Chief Complaint: Chest pain, shortness of breath History of Present Illness: The patient is a 37 F presenting with chest pain, shortness of breath. She states this started 2 days ago. Pain has been intermittent. It feels similar to when she had a PE at the end of October. At that time she was found to have bilateral PE secondary to DVT after Achilles tendon surgery. She was sent home on Xarelto. She followed up with Dr. Horner. Her lower extremity is well healing. She is still on Xarelto. She is not a smoker. She denies CAD risk factors. Physical Examination: Vitals are stable. Patient is afebrile. Alert no acute distress. HEENT exam is unremarkable. Neck is supple. Lungs are clear and equal bilaterally. Heart is regular rate and rhythm. Abdomen is soft nontender nondistended. Extremities are unremarkable. Skin is warm and dry. No focal neurologic deficit. Remainder of exam is unremarkable. Emergency Department Course and Treatment: She is given IV fluids, Zofran, aspirin. EKG is sinus rhythm rate 83 with no acute ischemic changes. CBC, chemistries unremarkable other than BUN of 20. Troponin is negative. CTA chest shows normal CTA chest examination, without a demonstrated pulmonary embolism or arterial dissection. Repeat troponin is also negative. On reevaluation, patient is resting comfortably. She is advised to follow-up with her primary care physician. Advised return to ED if worsening complaints. Disposition: Discharge home Impression: Atypical chest pain This note was generated with [employer] dictation software. It may contain incorrect words, spelling, and punctuation that were not noted in review of the chart prior to signing ED Disposition - Plan for ED Patient: Disposition: Home or Assisted Living Chief Complaint: Shortness of Breath Instructions: ED Chest Pain Atypical Unkn Cause Referrals: Lester Harrington DO [Primary Care Provider] -
[2018-02-15 16:04] LABS: Absolute Lymphocyte Count 2.64 X10^3/ul (0.83-4.51); Basophil# 0.05 X10^3/uL; Basophil% 0.7 % (0-1); Eosinophil# 0.25 X10^3/uL; Eosinophils% 3.3 % (0-5); Hematocrit 41.5 % (37-47); Hemoglobin 13.9 g/dl (12.0-15.0); Lymphocyte # 2.64 X10^3/ul (4.0); Lymphocyte % 34.8 % (19-41); Mean Corp Hgb Conc 33.5 g/gl (32-36); Mean Corpuscular Hgb 29.3 pg (27.0-32.0); Mean Corpuscular Volume 87.4 fL (81-99); Monocyte# 0.65 X10^3/uL; Monocyte% 8.6 % (0-10); Neutrophil # 3.97 X10^3/uL (2.7-7.7); Neutrophil % 52.3 % (47-70); Platelet Count 277 K/mm3 (150-450); RBC Distribution Width CV 12.1 % (11.6-14.6); RBC Distribution Width SD 38.8 fl (35.1-43.9); Red Blood Count 4.75 M/mm3 (4.2-5.4); White Blood Count 7.6 K/mm3 (4.4-11.0)
[2018-02-15 16:05] LABS: POSITIVE COUNT NO; POSITIVE DIFFERENTIAL NO; POSITIVE MORPHOLOGY NO
[2018-02-15] MEDS: 0.9% Normal Saline 1,000 ML 1000 ML IV (16:10)
[2018-02-15] MEDS: Aspirin 325 MG Tablet PO (16:10)
[2018-02-15 16:12] VITALS: O2SAT 100
[2018-02-15 16:33] LABS: Anion Gap 8 (5-15); BUN 20 mg/dL (7-18); BUN/Creat Ratio 21.6 RATIO (10-20); Calcium,Total 9.6 mg/dL (8.5-10.1); Chloride 108 mmol/L (98-107); Creatinine, Serum 0.92 mg/dL (0.55-1.02); EST Glomerular Filtration Rate 72 mL/min (>60); Est Glom Filt Rate - Afr Amer 88 mL/min (>60); Estimated Creatinine Clearance 90.54 ml/min; Glucose 92 mg/dL (74-106); Potassium 3.5 mmol/L (3.5-5.1); Sodium Level 139 mmol/L (136-145)
[2018-02-15 17:33] VITALS: O2SAT 98
[2018-02-15 17:45] VITALS: BP 145/70; PULSE 89; RESP 14; O2SAT 99
[2018-02-15 19:07] VITALS: BP 144/78; PULSE 80; RESP 14; O2SAT 99
--- NOTE | 2018-02-15 19:33 | ED.DEP ---
ED Disposition - Plan for ED Patient: Chief Complaint: Shortness of Breath Instructions: ED Chest Pain Atypical Unkn Cause Referrals: Lester Harrington DO [Primary Care Provider] -
[2018-02-15 19:49] VITALS: BP 128/70; PULSE 85; RESP 14; O2SAT 99
--- NOTE | 2018-02-16 14:13 | CM.ED ---
ED CALL BACK: Follow-up call attempted. Voicemail received. Message left with contact information for questions/concerns.
== END 2018-02-15 19:49 | disposition home or self-care (01) ==
PROVIDERS: Emergency Provider Emergency Medicine; Family Provider Student in an Organized Health Care Education/Training Program; PCP Student in an Organized Health Care Education/Training Program
DX: R07.89 Other chest pain (principal); R11.0 Nausea; J45.909 Unspecified asthma, uncomplicated; Z86.718 Personal history of other venous thrombosis and embolism
CPT/HCPCS: 71275; 80048; 84484; 85025; 93005; 99285; J7030; Q9967; A4216

== ENCOUNTER 2018-02-20 17:30 | Outpatient (RCR) | payer OTHER, SELFPAY ==
--- NOTE | 2017-12-26 16:59 | HP.PTEVAL_ITS ---
Patient's Visit Information VIMAL MONTES is a 37 year old F referred to Physical Therapy by DANGELO MILLER with a diagnosis of Post operative state. Date of Evaluation: 12/26/17 Physical Therapist: Sal Palomino DPT, OC - Visit Plan Frequency: 3x /Week Duration: 4-6 Weeks Plan: 3x/week for 4-6 weeks as needed for ankle ROM, STM calf, strength adn proprioception L LE. Gait training. - Subjective Subjective: Cleaned out heespurs at achilles and reattached L achilles. This was due to chronic pain for 4-5 years progressively worsening. Has in splint for a weeka then cast NWB totalling 3 weeks. Then in a boot with heel lifts WBAT for 3-4 weeks. Now lifts are out since last Monday and WBAT in boot. Tight as lifts were coming out but good now. Now no pain since last when she was on feet all day at work.Sleeping well, no boot at night or sitting for a long time. 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 Steps at home are 3 to enter adn 12 to get to second floor. and they are no problem in boot. Has cane that she uses for uneven surfaces or alot of walking. Hobbies include wroking out with Simona and Yoga adn workout with elliptical and lifting machines when healthy. Also enjoys hiking. - Pain L heel Pain Intensity (Out of 10): 0 Pain Intensity Range: 0, 2 Comment: prior to surgery 5/10 constant. - Objective Walking with boot is I, without boot with cane needs VC for technique but not painful for 150 feet. Avoids L pushoff prematurely bending knee. VC needed to heel strike. Transfers are I with UE. Steps are I but careful with rail up on steps reciprocally. Descending with L leading only without boot due to ROM and pain. Needs rail. Incision posterior L achilles has moderate scarring, incision has healed , mild tenderness. AROM ankles L 0 DF, 45 PF, 25 inv and 18 eversion. R is 8 DF, 60 PF, 30 inv and 24 ev. strength is L ankles 4-/5 and R 4+/5. Knees are 4+/5 B. Sensation Is WNL to B LE. reflexes 2/3 achilles and patella. SLS is harder on L vs R. Not painful. - Goals Goal 1:: AROM 8 DF L and 55 PF and functional for gait and steps. Goal Time Frame: 4-6 Weeks Goal 2:: Steps reciprocal without discomfort or railing. Goal Time Frame: 4-6 Weeks Goal 3:: Walk community without deviations. Goal Time Frame: 4-6 Weeks Goal 4:: Pt ready to return to elliptical and full gym program. Goal Time Frame: 4-6 Weeks - Rehabilitation Potential Physical Therapy Diagnosis: Post operative L ankle, achilles. Rehabilitation Potential: Good - Anticipated Interventions Patient/Client Instruction: Educate patient on: Condition, Plan of Care For the Purpose of:: To decrease pain, To increase ROM, To improve nutrient delivery to tissue, To improve muscle performance and motor function Therapeutic Exercise to Include: Strength training, Coordination, Flexibilty training, Gait and locomotor training, Passive ROM, Active ROM For the Purpose of:: To increase ROM, To improve nutrient delivery to tissue, To improve muscle performance and motor function, To improve ability of physical actions for home/community/work/leisure, To improve gait and locomotor functions Manual Therapy Techniques to Include: Soft tissue mobilization For the Purpose of:: To decrease pain, To increase ROM, To improve ability of physical actions for home/community/work/leisure Cryotherapy (ice pack, ice massage): Yes For the Purpose of:: To increase ROM, To improve nutrient delivery to tissue, To improve muscle performance and motor function Thank you for the opportunity to evaluate your patient. For Medicare and Medicare HMO plans, please review the plan of care and approve it. It will need to be FAXED BACK to us at [phone] for Medicare purposes. Please let me know if there are questions or concerns regarding this plan of care. Physician Signature: Date:
--- NOTE | 2018-01-31 16:56 | HP.PTREVAL_ITS ---
DANGELO MICHELLE, It has been my pleasure to treat VIMAL MONTES over the last 14 visits for Post operative state. Please see the progress note below for an update on the physical therapy plan of care! Subjective: Still feels stiff descending steps and intermittently. Walking is OK and up steps no problem. Sleeping is OK. Objective/Function: 3 degree DF L improving but still slightly tender on steps( pt to do steps reciprocally to work on this), WFL inv/ev adn PF ROM. Still weak and unable to SL heel raise L, she avoids pushoff in gait on L due to this. descending steps slightly uncomfortable with L planted. Plan Plan: patient to stretch adn strengthen at home and return to gym program adding toe press on leg press 3x week adn f/u with PT in 2-3 weeks. Check L heel raise, L DF ROM, steps and gait and progress ex as needed Goals Goal 1:: AROM 8 DF L and 55 PF and functional for gait and steps. Goal Time Frame: 4-6 Weeks Goal Progress: Progressing Goal 2:: Steps reciprocal without discomfort or railing. Goal Time Frame: 4-6 Weeks Goal Progress: Progressing Goal 3:: Walk community without deviations. Goal Time Frame: 4-6 Weeks Goal Progress: Progressing Goal 4:: Pt ready to return to elliptical and full gym program. Goal Time Frame: 4-6 Weeks Goal Progress: Goal Met Goal 5:: Descend steps without deviations or pain Goal Time Frame: 2-4 Weeks Goal Progress: Progressing Goal 6:: heel raise L without weakness to get push off walking improved Goal Time Frame: 2-4 Weeks Goal Progress: NEW GOAL Anticipated Interventions Patient/Client Instruction: Educate patient on: Condition, Plan of Care For the Purpose of:: To decrease pain, To increase ROM, To improve nutrient delivery to tissue, To improve muscle performance and motor function Therapeutic Exercise to Include: Strength training, Coordination, Flexibilty training, Gait and locomotor training, Passive ROM, Active ROM For the Purpose of:: To increase ROM, To improve nutrient delivery to tissue, To improve muscle performance and motor function, To improve ability of physical actions for home/community/work/leisure, To improve gait and locomotor functions Manual Therapy Techniques to Include: Soft tissue mobilization For the Purpose of:: To decrease pain, To increase ROM, To improve ability of physical actions for home/community/work/leisure Cryotherapy (ice pack, ice massage): Yes For the Purpose of:: To increase ROM, To improve nutrient delivery to tissue, To improve muscle performance and motor function Please do not hesitate to contact me at [phone] by phone or Fax: if you have questions or concerns regarding this new plan of care! Sincerely, Sal Palomino, JANINAT, OC
--- NOTE | 2018-02-20 17:47 | HP.PTDCSUM ---
HP - PT D/C Summary It has been my pleasure to treat VIMAL MONTES under orders from DANGELO MICHELLE, for the diagnosis of Post operative state for a total of 15 visit(s). Discharge Date: 02/20/18 Please see the following information for a summary of their discharge status. - Subjective Subjective: Doing pretty good. Walking is getting better. Not as stiff sore as last time. Working 15 hours days on feet for some of that time. Foot sore some days and swollen some days after work. To 12/23 and gone after one hour of icing. Sleeping OK. Exercisees at home going OK. - Pain L heel Pain Intensity (Out of 10): 0 - Overall Improvement % Improvement: 70 - Objective Objective/Function: Full aROM without discomfort. Walks normal and steps normal. Stronger in L gastroc then last session as she can elevate heel 25 degrees, still weaker than R. OVERALL PROGRESSING WELL AND TOLERATING LIFE. BIANKA CONTINUE TO STRENGTHEN AND F/U WITH DOC IN [facility]IL. - Goals Goal 1:: AROM 8 DF L and 55 PF and functional for gait and steps. Goal Progress: Goal Met Goal 2:: Steps reciprocal without discomfort or railing. Goal Progress: Goal Met Goal 3:: Walk community without deviations. Goal Progress: Progressing Goal 4:: Pt ready to return to elliptical and full gym program. Goal Progress: Goal Met Goal 5:: Descend steps without deviations or pain Goal Progress: Goal Met Goal 6:: heel raise L without weakness to get push off walking improved Goal Progress: Progressing - Plan Plan: D/C - D/C Information Discharge Comments: wILL CONTINUE hep AND f/u with doctor in April. Doing great today. If there are questions or concerns regarding this patient's physical therapy, please feel free to call me at [phone]. Thank you for the referral of this patient. Sincerely, Sal Palomino, DPT, OC
== END 2018-02-20 19:00 | disposition home or self-care (01) ==
LOC: PT 17:30
PROVIDERS: Family Provider Student in an Organized Health Care Education/Training Program; PCP Student in an Organized Health Care Education/Training Program
DX: Z98.890 Other specified postprocedural states (principal)
CPT/HCPCS: 97110; 97140; 97162; 97530

== ENCOUNTER → 2018-07-16 11:29 | Outpatient (CLI) | payer OTHER, SELFPAY ==
[2018-07-16 12:37] LABS: D-Dimer Quantitative (DVT/PE) 0.52 FEU/ug/m (0.27-0.49)
[2018-07-18 11:50] LABS: Antithrombin 3 Function 111 % (75-135)
== END ==
PROVIDERS: Family Provider Student in an Organized Health Care Education/Training Program; PCP Student in an Organized Health Care Education/Training Program; Referring Provider Internal Medicine Hematology & Oncology; Visit Provider Internal Medicine Hematology & Oncology
DX: I26.99 Other pulmonary embolism without acute cor pulmonale (principal)
CPT/HCPCS: 36415; 85300; 85379

== ENCOUNTER → 2019-05-23 15:45 | Outpatient (CLI) | payer OTHER, SELFPAY ==
[2018-07-24 14:55] VITALS: BMI 37.1
--- NOTE | 2019-05-23 15:45 | EMB_PTH ---
PATIENT: VIMAL MONTES LOC: [facility] U#:[id number] AGE/SX: 45/F ROOM: RE05/23/[address]: Dr. Nguyễn Peterson MD : [id number] BED: DIS: SPEC #: [id number] RECD: 05/23/19 16:50 STATUS: TOMI REMaggi #: [id number] HIRAM: 05/23/19 15:[address]: Nguyễn Peterson DEPT: SURGICAL PATHOLOGY RECD BY: Alexis Marion ENTERED: 05/24/19 11:20 SP TYPE: ENDOM BX/C CHAVO DR: Dr. Lester Harrington DO Tissues: Endometrium, NOS Procedures: Surgery Specimen Level IV HEADER OPERATION: Endometrial biopsy PRE-OP DIAGNOSIS: N92.0 TISSUE SUBMITTED: Endometrial biopsy MICROSCOPIC DIAGNOSIS Endometrium, biopsy: Secretory endometrium. AM:zahraa 05/27/19 MICROSCOPIC DESCRIPTION Slides are reviewed. GROSS DESCRIPTION Received in fixative is one container labeled with the patient's name and designated endometrial biopsy. The specimen consists of multiple irregular fragments of patrick-pink soft tissue that in aggregate measure 2 x 1 x 0.2 cm. The specimen is totally submitted in one cassette. / SJ:zahraa 05/24/19 TC:5 CPT: 33139
== END ==
PROVIDERS: Family Provider Student in an Organized Health Care Education/Training Program; PCP Student in an Organized Health Care Education/Training Program; Referring Provider Obstetrics & Gynecology; Visit Provider Obstetrics & Gynecology
DX: N92.0 Excessive and frequent menstruation with regular cycle (principal)
CPT/HCPCS: 88305

== ENCOUNTER → 2019-05-23 17:17 | Outpatient (CLI) | payer SELFPAY ==
[2019-05-28 15:49] LABS: HPV Reflexed? NOT INDICATED
== END ==
PROVIDERS: Family Provider Student in an Organized Health Care Education/Training Program; PCP Student in an Organized Health Care Education/Training Program; Referring Provider Obstetrics & Gynecology; Visit Provider Obstetrics & Gynecology
DX: Z12.4 Encounter for screening for malignant neoplasm of cervix (principal)
CPT/HCPCS: 87624; 88175; G0145

== ENCOUNTER 2019-09-02 05:45 | Day surgery (SDC) | payer BC, SELFPAY ==
[2019-08-28 17:09] LABS: Hematocrit 42.6 % (37-47); Hemoglobin 14.3 g/dL (12.0-15.0); Mean Corp Hgb Conc 33.6 g/dL (32-36); Mean Corpuscular Hgb 30.4 pg (27.0-32.0); Mean Corpuscular Volume 90.6 fL (81-99); Mean Platelet Vol. 10.2 fl (6.2-12.0); Platelet Count 276 K/mm3 (150-450); RBC Distribution Width SD 39.7 fl (35.1-43.9)
[2019-08-28 17:19] LABS: Partial Thromboplast Time 26.9 Seconds (24.1-36.2); Prothrombin Time (Protime)PT. 13.1 SECONDS (11.7-14.9)
[2019-08-28 17:49] LABS: Internal QC Validated? YES +Cl - CLEAR BKGD; Pregnancy, Serum, hCG Quali. NEGATIVE Negative
[2019-08-28 18:02] LABS: Creatinine, Serum 1.37 mg/dL (0.55-1.02); EST Glomerular Filtration Rate 46 mL/min (>60); Est Glom Filt Rate - Afr Amer 55 mL/min (>60); Thyroid Stim Hormone (TSH) 1.86 uIU/mL (0.358-3.74)
--- NOTE | 2019-09-01 21:36 | PCM.HP.BLA ---
History and Physical Date of Admission: 09/02/19 Surgical History and Physical Mary Gabriel, a 39 year old female 0 0 0 0 0, presents for RAVH/BS/Rt Oophorectomy on August at 7:30. -- Menorrhagia; Right Ovarian Dermoid; Submucous/Intramural Fibroids -- Heavy menses. She relates this has been an issue for many years, improved with OCP. She was seen in the ER 11/13/17 after surgery on 10/24/17 on her left achilles tendon. She was diagnosed with PE, taken off OCP and started on blood thinners. She relates menses long with severely heavy bleeding. Saw Dr. Amber Banks for possible Ablation due to history of Menorrhagia with clots. US in prep for ablation due to menorrhagia showed fibroids and a right dermoid cyst. Menorrhagia which began Heavy Periods x more than a year. Mary claims it started suddenly and has been present PE's with OCP use. It occurs with menses. It is located in the vagina.; It is located in the lower abdomen. Mary characterizes the quality Heavy bleeding and clots. Severity is moderate and not improving; Additional comments are: U/S shows fibroids present; largest fibroid about 3-4 cm and is intramural/submucous in location; 5-6 cm right dermoid cyst noted. Off Xarelto now. MEDICATIONS HISTORY: Patient is also takin. hyoscyamine sulfate 0.375 mg tablet extended release 12 hr, 1 bid 2. Vitamin B-100 Complex tablet, daily 3. Vitamin D3 5,000 unit tablet, daily 4. Fiber Supplement (inulin) 2 gram chewable tablet 5. fluoxetine 10 mg capsule, One pill by mouth once a day ALLERGIES: Doxycyline, Fever, emesis, headache, Doxycycline, Fever, emesis and headache Infections - Chicken pox Illnesses - IBS, Vit. D Def. , PE's while on OCP 2018 Accidents - no injuries of consequence Hospitalizations - None 11/13/17 PE; Review of Systems: GENERAL - Denies fever, or chills SKIN - Denies skin changes EYES - Denies visual changes EARS - Denies difficulty hearing NOSE - Denies nasal congestion or bleeding MOUTH - Denies sore throat or difficulty swallowing NECK - Denies pain or swelling RESPIRATORY - Denies shortness of breath or wheezing CARDIOVASCULAR - Denies palpitations or chest pain GASTROINTESTINAL - Denies nausea, vomiting, diarrhea, constipation GENITOURINARY - Denies dysuria, frequency of urination, incontinence of urine MUSCULOSKELETAL - Denies joint or muscle pain NEUROLOGICAL - Denies localized numbness or weakness PSYCHIATRIC - Denies depression or anxiety ENDOCRINE - Denies heat or cold intolerance, weight loss or gain HEMATO-IMMUNOLOGIC - Denies excesive bleeding with cuts SOCIAL HISTORY: Alcohol Use - RARELY Smoking - denies smoking Diet - limits dairy and caffeine Lifestyle - moderate stress lifestyle Exercise - regular Seat Belt Use - always Employer - [employer] 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 Father: Colon Cancer. Maternal Grandmother: Muscular Dystrophy. MENSTRUAL HISTORY: LMP Known?- DefiniteAmount/Duration - 12-14 days, Regularity - Regular, Frequency - monthly days, LMP - 08/12/19, Age Onset Menarche - 12 PAST PREGNANCIES: Total Pregnancies - 0; Full Term Pregnancies - 0; Premature - 0; Abortions, Induced - 0; Abortions, Spontaneous - 0; Ectopics - 0; Multiple Births - 0; Living Children - 0 SURGICAL HISTORY: 1. Tonsils 2. 10/23/2017 left foot PHYSICAL EXAM BP- 144/88 Sitting, Right arm, regular cuff Weight- 258.41355 lbs Height- 70 inch BMI:37.10 CONSTITUTIONAL - NAD, well nourished, and well developed SKIN - No rash, lesions, or ulcers HEENT - Normocephalic, PERRLA, EOMI NECK - No nodes, no nuchal rigidity and thyroid normal size and texture LUNGS - CTA x2 without wheezes, crackles or rales CARDIAC - Regular rate and rhythm without rubs, murmurs, or gallops BREAST - No dominant masses, no tenderness, no axillary adenopathy, no nipple discharge, no skin changes ABDOMEN - Without hepatosplenomegaly, distention, masses, rebound, or guarding; normal bowel sounds; no hernias EXTREMITIES - No edema or calf tenderness NEUROLOGICAL - Cranial nerves II-XII grossly intact PSYCHIATRIC - A and O to time, place, person, mood and affect DETAILED PELVIC EXAM External Genitial Vagina - non-tender without lesions Urethra/Urethral Meatus - non-tender Bladder - non-tender Vagina - vaginal hammond are pink and moist without loss of rugae and no evidence of atropy Cervix - without cervical motion tenderness and has normal size and features without evident lesions Uterus - 5-6 cm in size, mobile and nontender Adnexa - clear without massess or tenderness ASSESSMENT/PLAN: 1. Benign Neoplasm Of Unspecified Ovary, Menorrhagia and Submucous Leiomyoma Of Uterus Discussed options for treatment including expectant management, EM ablation or proceeding with RAVH/RSO/LS and pt desires the hysterectgomy. She understands with the fibroids being intramural near the endometrium or even a submucous fibroid, that the success of an HTA may be compromised. Discussed RBAs of both procedures and all questions answered. Reviewed normal EMBx results with the patient. Creatinine noted to be 1.3 but cleared for surgery by medical provider.
[2019-09-02] VITALS (12 sets, daily range): BP systolic 113–145; BP diastolic 66–92; PULSE 69–107; RESP 16; TEMP 36.1–37.2; O2SAT 93–97; BMI 36.0; BMI 36.3
[2019-09-02 06:34] LABS: Internal QC Validated? YES +Cl - CLEAR BKGD; Pregnancy, Urine Negative Negative
[2019-09-02] MEDS: Lactated Ringers 1,000 ML 100 ML IV ×3 (06:40→10:41)
--- NOTE | 2019-09-02 07:30 | HYST_PTH ---
PATIENT: VIMAL MONTES LOC: [facility] – [place] U#:[id number] AGE/SX: 39/F ROOM: RE09/02/[address]: Dr. Nguyễn Peterson MD : 1980 BED: DIS: 09/03/2019 SPEC #: [id number] RECD: 09/02/19 12:18 STATUS: TOMI REMaggi #: [id number] HIRAM: 09/02/19 07:[address]: Nguyễn Peterson DEPT: SURGICAL PATHOLOGY RECD BY: Dian Shelton ENTERED: 09/02/19 13:36 SP TYPE: HYSTERECT OTHR DR: Dr. Lester Harrington, DO Tissues: Uterus, NOS Procedures: Surgery Specimen Level V HEADER OPERATION: Robotic assisted vaginal hysterectomy, bilateral salpingectomy PRE-OP DIAGNOSIS: Benign neoplasm of ovary, menorrhagia and submucous leiomyoma of uterus TISSUE SUBMITTED: Uterus, cervix, bilateral fallopian tubes, right ovary, possible dermoid cyst MICROSCOPIC DIAGNOSIS Uterus, cervix, bilateral fallopian tubes and right ovary, vaginal hysterectomy, bilateral salpingectomy, right oophorectomy: Cervix - mild chronic inflammation. Endometrium - secretory endometrium. Myometrium - intramural and subserosal leiomyomas (largest measuring 7 cm in greatest dimension). Bilateral fallopian tubes - no pathologic diagnosis. Right ovary - physiologic corpus luteum and follicular cysts. See comment. SJ:zahraa 09/03/19 COMMENT The detached nodular masses consist of leiomyomas. MICROSCOPIC DESCRIPTION Slides are reviewed. GROSS DESCRIPTION Received in fixative is one container labeled with the patient's name and designated uterus, cervix, bilateral fallopian tubes, right ovary, possible dermoid cyst. The specimen consists of a hysterectomy specimen consisting of uterus with cervix, attached right fallopian tube and ovary and detached one fallopian tube and two nodular pieces. The uterus with cervix weighs 69 gm and measures 9.5 x 4.5 x 5 cm. A few serosal nodules are noted. The serosal surface is patrick, glistening. The ectocervical mucosa is unremarkable. The external os is slit-like in contour. The endocervical canal measures 3.5 cm in length and the endocervical mucosa is patrick, glistening and unremarkable. The triangular endometrial cavity measures 5 cm in length and 2 cm in width. The endometrium is congested and measures 0.2 cm in thickness. No mass lesion is identified. Sections of the uterine wall reveal intramural to subserosal nodular masses. The largest mass measures 2.5 cm in diameter. The largest mass is intramural to subserosal in location. Sections of these masses reveal patrick whorled cut surfaces without areas of hemorrhage, necrosis or cystic degeneration. The uninvolved uterine wall measures up to 2 cm in thickness. The attached right fallopian tube measures 7 cm in length and 0.5 cm in diameter. The fimbrial end is identified. No tubo-ovarian adhesions are noted. Sections reveal unremarkable cut surfaces. The right ovary measures 4 x 3 x 2 cm. Sections reveal hemorrhagic corpus luteum measuring 2 cm in greatest dimension. The detached left fallopian tube measures 5 cm in length and 0.5 cm in diameter. The fimbrial end is identified. Sections reveal unremarkable cut surfaces. Also present in the container are two detached pieces of nodular tissue. The larger one measures 7 x 6 x 5 cm and weighs 94 gm. The outer surface is smooth and inked black. Sections of these masses reveal patrick whorled cut surfaces without areas of hemorrhage, necrosis or cystic degeneration. The smaller nodular mass shows a suture and weighs 12 gm and measures 4 x 2.5 x 2 cm. The outer surface is smooth and inked black. Sections of these masses reveal patrick whorled cut surfaces without areas of hemorrhage, necrosis or cystic degeneration. [employer] sections are submitted in 15 cassettes as follows: 1 - anterior cervix, 2??posterior cervix, 3 & 4 - anterior uterine wall, largest nodular mass, 5 & 6 - posterior uterine wall, 7??more sections largest nodular mass, 8 - smaller nodular masses, 9 - right fallopian tube and ovary, 10??more sections of right ovary, 11 - detached left ovary, 12 & 13 - larger detached nodular mass, 14?&?15 - smaller detached nodular mass. / SANAM:zahraa 09/02/19 TC:1 CPT: 75204
[2019-09-02] MEDS: Lubricating Jelly 60 GM Tube 30 GM TOPICAL (07:55)
[2019-09-02] MEDS: Ropivacaine 0.5% 30 ML Vial (10:00)
--- NOTE | 2019-09-02 10:07 | PCM.OPRPT ---
Report of Operation Date of Procedure: 09/02/19 Pre-Operative Diagnosis: Menorrhagia, Uterine Fibroids, Right Dermoid Cyst Post-Operative Diagnosis: Menorrhagia, Uterine Fibroids, Right Dermoid Cyst, Adhesions Surgery/Procedure Performed:: Robotic Assisted Vaginal Hysterectomy, Right Salpingo-Oophorectomy, Left Salpingectomy, Lysis of Adhesions Description of Surgical Findings:: 8 cm uterus with normal-appearing left ovary. Left fallopian tube densely adhered to the left pelvic sidewall and sigmoid colon. Right ovary and fallopian tube appeared normal with a 5 cm fibroid versus dermoid cyst adhered to the right pelvic sidewall and cul-de-sac. 3 cm pedunculated fibroid in the right posterior aspect of the uterus. 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 Drains: Garcia to straight drain Estimated Blood Loss (mL): Minimal Fluids Replaced: Crystalloid Description of Procedure: Surgeon: Nguyễn Peterson MD, FACOG Indication: This is a 39 year old 0 patient who has been having problems with heavy periods and fibroids and a dermoid cyst were noted on pelvic ultrasound. Given this, the patient desires that we proceed with the above surgery. The patient has been counseled regarding the risks, benefits and alternatives of this procedure including the possibility of bleeding, infection, and injury to surrounding structures such as bowel bladder and all questions were answered. She understands that if BSO is needed that she will need to be on HRT for an indefinite period of time. Procedure: Pt taken to the operating room where, after induction of general anesthesia, the patient was prepped and draped in the usual sterile fashion and placed on a non-slip Huggy-u-vac device. Trendelenburg test was satisfactory. Bladder was drained of urine with a Garcia catheter which was left in place. Anterior cervix was grasped and cervix was dilated to about 3-4 mm. Uterus sounded to 9 cms. 0-Vicryl suture was placed at the 3:00 and 9:00 position of the cervix. A small Advincula Moisture Machine Tender Uterine Manipulator was then placed in the uterus and attention was turned to the laparoscopic portion of the procedure. Ropivocaine 0.5% was injected approximately 2 cm superior to the umbilicus and an 8 mm robotic camera port was introduced directly with intraperitoneal placement confirmed with CO2 insufflation. 8 mm robotic side ports were introduced under direct visualization approximately 11 cm lateral and 2 cm inferior to the umbilical port. A 5 mm left upper quadrant port was introduced and airseal insufflation with CO2 was started. The above findings were noted. Robot was docked without difficulty and attention turned to the robotic portion of the procedure. Approximately 30 cc of Ropivicaine was used. Under blunt and sharp dissection the cystic structure in the posterior aspect of the uterus was freed from the posterior cul-de-sac as well as the left fallopian tube from the rectosigmoid and sidewall. A single 0 Vicryl suture was placed in each pedunculated structure on the posterior aspect of the uterus after ligating the pedicles of these pedunculated structures. They were detached from the uterus and anchored in the right round ligament leaving the needles and suture in place. Infundibulopelvic ligaments on the right and mesosalpinx on the left were divided to the round ligaments with 35 dukes bipolar coagulation. The posterior aspect of the cervix was identified and then opened for about 1 cm using 25 watt monopolar cautery. Bladder flap was opened and divided to the level of the round ligaments using monopolar cautery. Progressive bites were then ligated on each side of the cervix with 35 dukes bipolar cautery to the uterine arteries. The anterior vaginal mucosa was entered and cervix circumscribed with monopolar cautery. Uterus and attached tubes and ovaries on the right and left fallopian tube were removed through the vagina. The 3 cm pedunculated fibroid was then removed by grasping the attached Vicryl stitch and removing through the vagina. An Endobag was placed in the vagina and the 5cm cystic dermoid versus fibroid was placed in the bag and removed through the vagina. Vaginal cuff was closed first with 0-Vicryl Carolyn stitches placed at each angle followed by closure of the mid-cuff with 0-Monocryl V-lock suture in two layers. Pelvis was copiously irrigated with saline. Glory was placed across the pedicles and in the cul-de-sac where some oozing was noted from the adhesions area. Robot was undocked and trocars were removed with as much gas as possible. Incisions were closed with 4-0 Monocryl subcuticular sutures and incisions covered with steri-strips. The patient tolerated the procedure well and was taken to the recovery room in satisfactory condition. Sponge, instruments and needle counts were all correct. There were no apparent complications of the surgery. Cefotan 2 gms IV was given prior to the procedure. Grafts/Implants Used: None - Complications None - Admit VTE Documentation VTE Present on Admission: Yes VTE Mechan Device Prophylaxis: SCD's VTE Pharm Prophylaxis ordered?: Yes
--- NOTE | 2019-09-02 10:22 | DCINST_ITS ---
Discharge Diet: No Restrictions Discharge Activity: Return to Normal Activity, May Not Drive - while taking narcotic pain medications., May Shower, May Take a Tub Bath May resume sexual activity in: 6-8 weeks Call your doctor if your incision/area has: Continuous Slow Oozing, Sudden Inc reased Bleeding, Increased Pain/ Swelling, Increased Redness, Foul Smelling Discharge Call your doctor if you observe: Fever of 101 or Higher, Inability to urinate, Inability to have a bowel movement, Using more than one pad per hour Additional Instructions: Continue Lovenox for 2 weeks and until ambulating well. Allergies/Adverse Reactions: Allergies doxycycline Adverse Reaction (Severe, Verified 09/02/19 06:18) Vomiting Medications to take at Discharge Cholecalciferol (Vitamin D3) [Vitamin D3] 5,000 units PO QHS 09/12/16 Fluoxetine [Prozac] 20 mg PO QHS 09/12/16 Hyoscyamine Sulfate [Hyoscyamine Sulfate ER] 0.375 mg PO QHS 09/12/16 L.acidoph,Paracasei, B.lactis [Probiotic] 1 ea PO DAILY 09/12/16 Acetaminophen [Tylenol Tablet] 650 mg PO Q4H PRN PRN tab 11/14/17 Docusate Sodium [Colace] 100 mg PO BID PRN PRN #60 cap 09/02/19 Enoxaparin Sodium [Lovenox] 40 mg SQ DAILY #14 syringe 09/02/19 Oxycodone [Oxyir] 5 mg PO Q6H PRN PRN 7 Days #20 tab 09/02/19 The following prescriptions were given: Docusate Sodium [Colace] 100 mg PO BID PRN PRN #60 cap PRN Reason: Constipation Prescription Printed Enoxaparin Sodium [Lovenox] 40 mg SQ DAILY #14 syringe Prescription Printed Oxycodone [Oxyir] 5 mg PO Q6H PRN PRN 7 Days #20 tab PRN Reason: Pain Score 6-10/10 Prescription Printed Primary Care Physician: Lester Harrington DO [Primary Care Provider] - Test Results: Test results from this visit will be discussed in further detail at your follow- up appointment, if applicable. Please Follow Up With: Nguyễn Peterson MD When: 2-3 weeks
[2019-09-02] MEDS: Dextrose 5%-Lactated Ringers 1,000 ML 150 ML IV (12:42)
[2019-09-02] MEDS: Ketorolac 15 MG/ML Vial IV ×2 (13:19→21:13)
[2019-09-02] MEDS: Enoxaparin 40 MG/0.4 ML Syringe SC (17:43)
[2019-09-02] MEDS: 0.9% Saline Lock 10 ML Syringe IV (21:14)
[2019-09-02] MEDS: FLUoxetine 20 MG Capsule PO (21:25)
[2019-09-03] MEDS: Ketorolac 15 MG/ML Vial IV (02:34)
[2019-09-03] MEDS: 0.9% Saline Lock 10 ML Syringe IV (02:34)
[2019-09-03 02:39] VITALS: BP 156/74; PULSE 100; PULSE 93; RESP 16; RESP 18; TEMP 36.7; TEMP 36.8; O2SAT 95; O2SAT 97
[2019-09-03 06:08] VITALS: BP 133/76; PULSE 93; RESP 18; TEMP 37.1; O2SAT 95
[2019-09-03 07:22] VITALS: O2SAT 94
[2019-09-03] MEDS: Ketorolac 10 MG Tablet PO (07:52)
[2019-09-03 08:18] VITALS: BP 150/86; PULSE 92; RESP 16; TEMP 37.1; O2SAT 96
--- NOTE | 2019-09-03 08:27 | PCM.PN.OB ---
Subjective: Patient without complaints. Tolerating diet well. Denies flatus. Minimal vaginal bleeding. - Physical Exam Vitals/I&O's: Vital Signs Temp Pulse Resp BP Pulse Ox 98.8 F 92 16 150/86 H 96 09/03/19 08:18 09/03/19 08:18 09/03/19 08:18 09/03/19 08:18 09/03/19 08:18 Oxygen Flow Rate (L/min) 1 Oxygen Delivery Method Room Air Weight: 253 lb 8.505 oz Body Mass Index (BMI) 36.3 Intake and Output for Last 24 Hours 09/01/19 09/02/19 09/03/19 23:59 23:59 23:59 Intake Total 2273.67 / 2273.67 1000 / 1000 Output Total 2049 / 2049 Balance 223.67 / 223.67 -1000 / -1000 Comment: Good urine output. Hemoglobin and creatinine pending. Current Medications Acetaminophen (Tylenol) 1,000 mg PO Q8H PRN PRN PRN Reason: Pain Score 1-3/10 or Fever Docusate Sodium (Colace) 100 mg PO BID PRN PRN PRN Reason: Constipation Enoxaparin Sodium (Lovenox) 40 mg SC DAILY@1000 [facility] Last Admin: 09/02/19 17:43 Dose: 40 mg Documented by: Fluoxetine HCl (Prozac) 20 mg PO QHS [facility] Last Admin: 09/02/19 21:25 Dose: 20 mg Documented by: Hydromorphone HCl (Dilaudid Inj) 0.5 mg IV Q3H PRN PRN PRN Reason: Pain Score 4-10/10 Hyoscyamine Sulfate (Levsinex) 0.375 mg PO QHS [facility] Last Admin: 09/02/19 21:24 Dose: 0.375 mg Documented by: Influenza Virus Vaccine Quadrival (Flucelvax /Fluzone ) 0.5 ml IM .ONCE ONE Stop: 09/03/19 10:01 Ketorolac Tromethamine (Toradol) 10 mg PO Q6H [facility] Stop: 09/08/19 06:52 Last Admin: 09/03/19 07:52 Dose: 10 mg Documented by: Lactobacillus Acidophilus (Acidophilus) 1 tablet PO DAILY [facility] Ondansetron HCl (Zofran) 4 mg IV Q4H PRN PRN PRN Reason: NAUSEA Oxycodone HCl (Oxyir) 5 mg PO Q4H PRN PRN PRN Reason: Pain Score 4-1010 Simethicone (Mylicon) 80 mg PO [facility] Last Admin: 09/03/19 07:53 Dose: 80 mg Documented by: Sodium Chloride () 10 - 40 ml IV UD PRN PRN Reason: SALINE FLUSH Last Admin: 09/03/19 02:34 Dose: 10 ml Documented by: Medical Necessity - Tobacco Use Smoking Status: Former smoker Assessment/Plan All Active Problems (Last Reviewed 07/24/18 @ 14:52 by Janny Vargas) RUSSELL (dyspnea on exertion) (Acute) Bilateral pulmonary embolism (Resolved) Pneumonia (Acute) Doing well postoperative day #1 status post robotic assisted vaginal hysterectomy right salpingo-oophorectomy, left salpingectomy and lysis of adhesions. Plan to release home later today. Plan to continue Lovenox daily for 2 weeks or until ambulating at normal levels.
[2019-09-03 08:45] LABS: Absolute Lymphocyte Count 1.86 X10^3/uL (0.83-4.51); Absolute Neutrophil Count 7.3 X10^3/uL (2.0-7.7); Basophil# 0.04 X10^3/uL; Basophil% 0.4 % (0-1); Eosinophil# 0.03 X10^3/uL; Eosinophils% 0.3 % (0-5); Hematocrit 41.3 % (37-47); Hemoglobin 13.7 g/dL (12.0-15.0); Lymphocyte # 1.86 X10^3/ul (4.0); Lymphocyte % 18.4 % (19-41); Mean Corp Hgb Conc 33.2 g/dL (32-36); Mean Corpuscular Hgb 30.6 pg (27.0-32.0); Mean Corpuscular Volume 92.2 fL (81-99); Mean Platelet Vol. 9.9 fl (6.2-12.0); Monocyte# 0.88 X10^3/uL; Monocyte% 8.7 % (0-10); NRBC Flagged by Analyzer 0 % (0-5); Neutrophil # 7.25 X10^3/uL (2.7-7.7); Neutrophil % 71.8 % (47-70); Platelet Count 234 K/mm3 (150-450); RBC Distribution Width CV 12.4 % (11.6-14.6); RBC Distribution Width SD 42.1 fl (35.1-43.9); Red Blood Count 4.48 M/mm3 (4.2-5.4); White Blood Count 10.1 K/mm3 (4.4-11.0)
[2019-09-03 09:07] LABS: Creatinine, Serum 1.11 mg/dL (0.55-1.02); EST Glomerular Filtration Rate 58 mL/min (>60); Est Glom Filt Rate - Afr Amer 70 mL/min (>60); Estimated Creatinine Clearance 73.58 ml/min
[2019-09-03] MEDS: Enoxaparin 40 MG/0.4 ML Syringe SC (09:58)
== END 2019-09-03 11:49 | disposition home or self-care (01) ==
LOC: SDC 05:46 → AC 05:46 → ACINP 09-03 09:35 → MS3 09-03 09:35
PROVIDERS: Anesthesiology; Family Provider Student in an Organized Health Care Education/Training Program; PCP Student in an Organized Health Care Education/Training Program; Referring Provider Obstetrics & Gynecology; Visit Provider Obstetrics & Gynecology
PROC: 0UT90ZZ Resection of Uterus, Open Approach (ICD-10-PCS; CPT 58552; principal; 2019-09-02 07:10)
DX: N92.0 Excessive and frequent menstruation with regular cycle (principal); N72 Inflammatory disease of cervix uteri; Z87.891 Personal history of nicotine dependence; N83.11 Corpus luteum cyst of right ovary; D25.1 Intramural leiomyoma of uterus; D25.2 Subserosal leiomyoma of uterus; Z79.1 Long term (current) use of non-steroidal anti-inflammatories (NSAID); Z79.899 Other long term (current) drug therapy; Z88.1 Allergy status to other antibiotic agents
CPT/HCPCS: 58552; 58571; 36415; 81025; 82565; 84443; 84703; 85025; 85027; 85610; 85730; 86850; 86900; 86901; 88307; 99251; J7120; 90686; A4216; G0463; J2405

== ENCOUNTER → 2019-11-29 16:13 | Outpatient (CLI) | payer BC, SELFPAY ==
[2019-09-02 12:43] VITALS: BMI 36.3
--- NOTE | 2019-11-29 16:20 | RAD_ITS ---
STUDY: X-RAY CHEST REASON FOR EXAM: Female, 39 years old. Cough x1 week. TECHNIQUE: PA and lateral views of the chest. COMPARISON: Prior study of 11/12/2017 FINDINGS: The lungs are clear and expanded. There is no demonstrated pleural abnormality. Normal size heart. Normal mediastinum and lor. Normal visualized pulmonary arteries. Normal visualized aortic arch and descending thoracic aorta. Normal visualized thoracic spine. Normal visualized ribs, clavicles, and shoulders. There is no demonstrated abnormality of the visualized soft tissue structures of the upper abdomen. RAD/Chest PA and Lateral IMPRESSION: Normal x-ray examination of the chest. Electronically Signed: Everardo Nguyen MD at 23:58 EST , Service support ,
== END ==
PROVIDERS: PCP Student in an Organized Health Care Education/Training Program
DX: R05 Cough (principal); J06.9 Acute upper respiratory infection, unspecified
CPT/HCPCS: 71046

== ENCOUNTER 2023-01-11 16:00 | Outpatient (RCR) | payer BC, SELFPAY ==
--- NOTE | 2022-11-21 10:58 | HP.PTEVAL_ITS ---
Patient's Visit Information VIMAL MONTES is a 42 year old F referred to Physical Therapy by Dr. Lester James DO with a diagnosis of S/P Right Achilles and FHL Transfer 09/05/22. Date of Evaluation: 11/21/22 Physical Therapist: January Wolfe DPT - Visit Plan Frequency: 2-3x /Week Duration: 4 Weeks Plan: Per MD Script: Right Ankle ROM, Proprioception and Strengthening. HEP Given IE: weight shifts in shoe, seated HR/TR, seated heel slide, Ankle ROM exercises, Gastroc Towel Stretch - Subjective Sep 05, [address] James Achilles and FHL Transfer- she went through the whole progression of splint and boot- has been WBAT for about 3 weeks. Has been doing push against gentle movement with the red T-band. She went to Monday and she saw him and he released her to wear regular shoes in her home. She tried this weekend and is doing it about an hour at a time. She is pretty sore after an hour but she can get the pain back down. Worst: 10 Agg: being up on it. Eases: getting off of it Best: 10. Describes the pain as dull and achy but does have occasional sharp/shooting. The pain is along the medial border of the malleolus. No radiating pain- no N/T in the right foot. Wearing the boot anytime she is out of the house. She uses a cane only when she is walking long distances or uneven ground. Fully I prior to surgery- she is back to driving. She feels that she is 50% through the process. Had the same thing on the left foot about 5 years- this one has been a little harder due to doing more. 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 She has had recent x-rays and she is 2 weeks ahead of where they thought she would be. She always has to have a boot/shoe on but no other restrictions- as tolerated. Sleep: occasionally- bed with pillows propped up- normally a side sleeper- sleep is getting better. She is normally pretty active- Goals: be able to walk normally like she could before. PMHx: none Meds: Fluoxetine, Vit D. - Objective Posture: FH, RS- can correct but does not maintain. Gait: antalgic- decreased stance on the right LE- poor heel/toe pattern- straight cane. HR/TR: seated but not standing. SLS: weight shift. Girth: Figure 8: 57 cm Malls:31 cm, Mets: 21.5 cm. Palpation: tender along medial malleolus along tarsal tunnel. ROM: DF: neutral PF: 40 degrees, inver: 20 degrees, Ever: 10 degrees all with discomfort. Strength: Hip: 4/5, Knee: 5/5 Ankle: 4/5 within avail range with discomfort - Balance/Special Test Scores Lower Extremity Functional Score: 36 - Goals Goal 1:: Patient will be I with HEP and progression Goal Time Frame: 4-6 Weeks Goal 2:: Patient will ambulate >300 feet with a normalized gait pattern Goal Time Frame: 4-6 Weeks Goal 3:: Patient will asc/desc 8 recip with 1 HR Goal Time Frame: 4-6 Weeks Goal 4:: Patient will SLS for 15 sec without loss of balance Goal Time Frame: 4-6 Weeks Goal 5:: Patient will demo 10 degrees of DF to improve gait and demo inc gastroc flexibility Goal Time Frame: 4-6 Weeks - Rehabilitation Potential Physical Therapy Diagnosis: Patient presents with hypomobility- she has decreased LE and core strength/stabilization, proprioception, flex and muscular endurance leading to abnormal gait and increased pain with ADL's S/P Right Achilles and FHL Transfer 09/05/22 Rehabilitation Potential: Good - Anticipated Interventions Patient/Client Instruction: Educate patient on: Benefits of Fitness Program Therapeutic Exercise to Include: Strength training, Endurance training, Balance training, Coordination, Agility training, Body mechanics, Postural training, Flexibilty training, Gait and locomotor training, Passive ROM, Active ROM, Dynamic Lumbar Stabilization, Scapular Strength/Stabilization For the Purpose of:: To improve muscle performance and motor function TENS: Yes Cryotherapy (ice pack, ice massage): Yes Thermo therapy (hot pack): Yes Ultrasound (thermal/non thermal): No Thank you for the opportunity to evaluate your patient. For Medicare and Medicare HMO plans, please review the plan of care and approve it. It will need to be FAXED BACK to us at [phone] for Medicare purposes. For Medicare only, by signing this I certify the plan of care. Please let me know if there are questions or concerns regarding this plan of care. Physician Signature: _Date:
--- NOTE | 2022-12-22 06:59 | HP.PTREVAL ---
Dr. Lester James, DO, It has been my pleasure to treat VIMAL MONTES over the last 9 visits for S/P Right Achilles and FHL Transfer 09/05/22. Please see the progress note below for an update on the physical therapy plan of care! Subjective: Patient reports that she has had some on/off swelling when she is very active but was able to control with ice and elevation. Wearing tennis tennis shoes at all times. Still challenged coming down stairs and anything that has a lot of DF. She is able to do her job without challenge. Objective/Function: Posture: FH, RS- can correct but does not maintain. Gait: slightly antalgic- dec heel toe due to lack of DF HR/TR: standing with slight weight shift to the right. SLS: 15 sec with mild increase in sway. Girth: Figure 8: 57 cm Malls:30 cm, Mets: 20 cm. Palpation: tender along medial malleolus along tarsal tunnel. ROM: DF: 5 PF: 40 degrees, inver: 20 degrees, Ever: 10 degrees all with discomfort. Strength: Hip: 4+/5, Knee: 5/5 Ankle: 4/5. Stairs: asc recip with no HR- desc step to pattern due to decreased DF Plan Plan: 12/21/22: Hold 4 weeks- pt will perform HEP and then will have re-assessment- if she is able to continue indep then she will be discharged- if any issues arise she will continue 2x a week for 4 weeks to continue to progress towards unmet goals. Per MD Script: Right Ankle ROM, Proprioception and Strengthening. HEP Given IE: weight shifts in shoe, seated HR/TR, seated heel slide, Ankle ROM exercises, Gastroc Towel Stretch Balance/Gait/Functional tests - Balance/Special Test Scores Lower Extremity Functional Score: 49 Goals Goal 1:: Patient will be I with HEP and progression Goal Time Frame: 4-6 Weeks Goal Progress: Progressing Goal 2:: Patient will ambulate >300 feet with a normalized gait pattern Goal Time Frame: 4-6 Weeks Goal Progress: Progressing Goal 3:: Patient will asc/desc 8 recip with 1 HR Goal Time Frame: 4-6 Weeks Goal Progress: Progressing Goal 4:: Patient will SLS for 15 sec without loss of balance Goal Time Frame: 4-6 Weeks Goal Progress: Goal Met Goal 5:: Patient will demo 10 degrees of DF to improve gait and demo inc gastroc flexibility Goal Time Frame: 4-6 Weeks Goal Progress: Goal Met Anticipated Interventions Patient/Client Instruction: Educate patient on: Benefits of Fitness Program Therapeutic Exercise to Include: Strength training, Endurance training, Balance training, Coordination, Agility training, Body mechanics, Postural training, Flexibilty training, Gait and locomotor training, Passive ROM, Active ROM, Dynamic Lumbar Stabilization, Scapular Strength/Stabilization For the Purpose of:: To improve muscle performance and motor function TENS: Yes Cryotherapy (ice pack, ice massage): Yes Thermo therapy (hot pack): Yes Ultrasound (thermal/non thermal): No Please do not hesitate to contact me at [phone] by phone or if you have questions or concerns regarding this new plan of care! Sincerely, January Wolfe DPT
--- NOTE | 2023-01-11 16:22 | HP.PTDCSUM ---
It has been my pleasure to treat VIMAL MONTES referred by Dr. Lester James DO, with the diagnosis of S/P Right Achilles and FHL Transfer 09/05/22 for a total of 10 visit(s). Discharge Date: Please see the following information for a summary of their discharge status. Subjective: Patient reports that she is doing great- she continues to make progress with stairs- she is able to perform all ADL's R medial ankle Pain Intensity (Out of 10): 1 % Improvement: 60 Objective/Function: Posture: good throughout Gait: no significant deviation HR/TR: able. SLS: 15 sec with mild increase in sway. ROM: DF: 10 PF: 40 degrees, inver: 20 degrees, Ever: 10 degrees Strength: Hip:5/5, Knee: 5/5 Ankle: 5/5. Stairs: asc recip with no HR- desc step recip with mild decreased control Goal 1:: Patient will be I with HEP and progression Goal Progress: Progressing Goal 2:: Patient will ambulate >300 feet with a normalized gait pattern Goal Progress: Progressing Goal 3:: Patient will asc/desc 8 recip with 1 HR Goal Progress: Progressing Goal 4:: Patient will SLS for 15 sec without loss of balance Goal Progress: Goal Met Goal 5:: Patient will demo 10 degrees of DF to improve gait and demo inc gastroc flexibility Goal Progress: Goal Met Plan: 01/11/23: Discharge to I HEP. 12/21/22: Hold 4 weeks- pt will perform HEP and then will have re-assessment- if she is able to continue indep then she will be discharged- if any issues arise she will continue 2x a week for 4 weeks to continue to progress towards unmet goals. Per MD Script: Right Ankle ROM, Proprioception and Strengthening. HEP Given IE: weight shifts in shoe, seated HR/TR, seated heel slide, Ankle ROM exercises, Gastroc Towel Stretch If there are questions or concerns regarding this patient's physical therapy, please feel free to call me at [phone]. Thank you for the referral of this patient. Sincerely, January Wolfe, DPT Balance/Gait/Functional tests - Balance/Special Test Scores Lower Extremity Functional Score: 49
== END 2023-01-11 19:00 | disposition home or self-care (01) ==
LOC: PT 16:00
PROVIDERS: PCP Student in an Organized Health Care Education/Training Program
DX: M76.61 Achilles tendinitis, right leg (principal); Z98.890 Other specified postprocedural states
CPT/HCPCS: 97110; 97162; 97164

== ENCOUNTER 2023-04-06 21:59 | Emergency (ER) | payer BC, SELFPAY ==
[2023-04-06 22:00] VITALS: BP 167/88; PULSE 58; RESP 18; TEMP 36.6; O2SAT 97
--- NOTE | 2023-04-06 22:44 | CT_ITS ---
INDICATION: sudden severe headache, n/v EXAMINATION: CTA HEAD - CTA Head WO/W Contrast Injection TECHNIQUE: [place] [facility]/head CT angiogram protocol was performed following IV contrast. 3D reconstructions were reviewed. A radiation dose optimization technique was used for this scan. IV Contrast dosage and agent: RADIATION DOSAGE (If Supplied By Facility): CTDIvol = ( 29.96 ) mGy, DLP = ( 1199.11 ) mGycm COMPARISON: FINDINGS: --Anterior circulation: ICAs: No significant stenosis at the intracranial/visualized segments. ACAs: No significant stenosis at the visualized segments. ACOM: Present. MCAs: No significant stenosis at the visualized segments. --Posterior circulation: wire insulator: No significant stenosis at the visualized segments. BASILAR ARTERY: No significant stenosis. VERTEBRAL ARTERIES: No significant stenosis at the intradural/visualized segments. No evidence of intracranial aneurysm or vascular malformation. CT/CTA Head W/WO Contrast IMPRESSION: Negative CTA Head. Electronically Signed: Val Hale MD at 0:46 EDT ,
[2023-04-06 23:18] LABS: Absolute Lymphocyte Count 2.22 X10^3/uL (0.83-4.51); Absolute Neutrophil Count 6.8 X10^3/uL (2.0-7.7); Basophil# 0.08 X10^3/uL; Basophil% 0.8 % (0-1); Eosinophil# 0.01 X10^3/uL; Eosinophils% 0.1 % (0-5); Hematocrit 44.5 % (37-47); Hemoglobin 15.5 g/dL (12.0-15.0); Lymphocyte # 2.22 X10^3/ul (0.83-4.51); Lymphocyte % 21.7 % (19-41); Mean Corp Hgb Conc 34.8 g/dL (32-36); Mean Corpuscular Hgb 30.1 pg (27.0-32.0); Mean Corpuscular Volume 86.4 fL (81-99); Mean Platelet Vol. 10.9 fl (6.2-12.0); Monocyte# 0.87 X10^3/uL; Monocyte% 8.5 % (0-10); NRBC Flagged by Analyzer 0 % (0-5); Neutrophil # 6.77 X10^3/uL (2.7-7.7); Neutrophil % 66.2 % (47-70); Platelet Count 308 K/mm3 (150-450); RBC Distribution Width CV 12.1 % (11.6-14.6); RBC Distribution Width SD 38.1 fl (35.1-43.9); Red Blood Count 5.15 M/mm3 (4.2-5.4); White Blood Count 10.2 K/mm3 (4.4-11.0)
[2023-04-06 23:26] LABS: Anion Gap 9 (5-15); BUN 23 mg/dL (7-18); Calcium,Total 10.1 mg/dL (8.5-10.1); Chloride 109 mmol/L (98-107); Creatinine, Serum 0.92 mg/dL (0.55-1.02); EST Glomerular Filtration Rate 71 mL/min (>60); Est Glom Filt Rate - Afr Amer 86 mL/min (>60); Glucose 112 mg/dL (74-106); Potassium 3.5 mmol/L (3.5-5.1); Sodium Level 142 mmol/L (136-145)
[2023-04-06] MEDS: Metoclopramide 10 MG/2 ML Vial 5 MG IV (23:41)
--- NOTE | 2023-04-07 00:48 | EX.ED.VIS.HA ---
HPI History of Present Illness Chief Complaint: Headache Informant: patient Onset/Context/Timing Onset: Hours (1) Context: Sudden and Onset Timing: Continuous Quality -Headache: Positive for Sharp and Throbbing Location: Occipital Current Severity: 7/10 Maximum Severity: 7/10 Worsened by: Light, vomiting Relieved by: Nothing Associated Symptoms/Injury Associated Symptoms: Positive for Nausea, Vomiting, Blurred Vision and Photophobia Injury - HOLLIS: Negative for Direct Trauma, Fall or Assault Narrative Narrative: She has a history of an occasional migraine. She states this headache started tonight about an hour prior to arrival/evaluation and it was sudden in onset, she was at home sitting watching TV and/or walking back to the couch from another room, when it started. She had no loss of consciousness, did not feel like a thunderclap but she has never had a headache like this 1 before. It was occipital, no radiation, no neck pain, no reason to have strained her neck recently. No recent illness or trauma or obvious trigger for this headache although she has not had obvious triggers in the past for her migraines. No recent medication changes. She denies any history of known aneurysms or history of cerebral aneurysms in the family that she knows of. [facility] Medical History (Updated 04/07/23 @ 00:[address] Richard Bashir MD) Asthmatic bronchitis Bilateral pulmonary embolism Headache, migraine IBS (irritable bowel syndrome) Pneumonia Home Medications L.acidoph, paracasei,B. lactis 10 billion cell capsule 1 ea PO DAILY gut health 09/12/16 [History Last Taken 09/01/19 22:00] cholecalciferol (vitamin D3) 125 mcg (5,000 unit) capsule 5,000 units PO QHS supplement 09/12/16 [History Last Taken 08/31/19 22:00] fluoxetine 20 mg capsule 20 mg PO QHS anxiety 09/12/16 [History Last Taken 09/01/19 22:00 20 mg] hyoscyamine sulfate 0.375 mg tablet,extended release,12 hr 0.375 mg PO QHS IBS 09/12/16 [History Last Taken 09/01/19 22:00] acetaminophen 325 mg tablet 650 mg PO Q4H PRN PRN Pain 11/14/17 [Rx Last Taken Unknown] docusate sodium 100 mg capsule 100 mg PO BID PRN PRN Constipation #60 caps 09/02/19 [Rx Last Taken Unknown] enoxaparin 40 mg/0.4 mL subcutaneous syringe 40 mg (0.4 mL) SQ DAILY ##14 09/02/19 [Rx Last Taken Unknown] Allergy/AdvReac Type Severity Reaction Status Date / Time doxycycline AdvReac Severe Vomiting Verified 04/06/23 22:02 Family History Father Bowel cancer Mother Muscular dystrophy Brother Muscular dystrophy Surgical History (Updated 07/24/18 @ 15:[address] Renetta Steele MD) Achilles tendon surgery Social History Smoking Status: Former smoker quit date: 10/16/05 pack-years: 10 second hand exposure: No alcohol intake: current alcohol intake frequency: holidays/special occasions only substance use type: does not use ROS ROS ED Constitutional Constitutional ED: Denies chills or fever(s) Eyes Eyes: Reports blurry vision; Denies diplopia ENT ENT ED: Denies ear pain or sore throat Cardiovascular Cardiovascular: Denies chest pain or palpitations Respiratory/Chest Respiratory/Chest: Denies cough or dyspnea Gastrointestinal Gastrointestinal: Reports nausea and vomiting; Denies abdominal pain or diarrhea Genitourinary Genitourinary ED: Denies dysuria or urinary frequency Musculoskeletal Musculoskeletal: Denies back pain or myalgias Integumentary Denies abscess or rash Neurologic Neurologic: Reports headache(s); Denies paresthesias or weakness EXAM Physical Exam Const Vital Signs: 04/06/23 22:00 Temperature 97.9 F Temperature Source Temporal Pulse Rate 58 L Respiratory Rate 18 Blood Pressure 167/88 H Blood Pressure Mean 114 Pulse Ox 97 Oxygen Delivery Method Room Air Positive well nourished and well developed General Appearance ED: well developed and NAD HEENT Reports normocephalic, TM's clear and moist mucous membranes atraumatic Tympanic Membrane ED: Yes TM's clear Eyes PERRL, EOMs intact bilaterally and conjunctivae normal Eyes Narrative: photophobia Neck no lymphadenopathy, supple and no meningeal signs Resp normal respiratory effort and clear to auscultation bilaterally GI non-tender and non-distended Palpation: soft Extremity normal to inspection and full ROM Neuro oriented x3 and CN's II-XII intact bilaterally Neuro Narrative: Normal neurologic exam normal speech, normal gait. Sensorium / Orientation: awake and alert Speech: speech normal Gait (Neuro): normal gait Motor Exam: strength 5/5 throughout Psych mental status grossly normal Skin Lesions: no lesions Rashes: no rashes MDM MDM MDM Narrative Medical decision making narrative: Patient was sent for emergent CT angiography of the head, this includes a plain CT of the head which on my interpretation looking at the images shows no acute hemorrhage. She also has no sign of an LVO or aneurysm. I reviewed the images and the radiology report and I agree with it. In the meantime patient was given Reglan 5 mg, this helped her nausea and significantly helped her headache, she was down to a 3/10, she was offered more but declined and felt a lot better. This is adequate to rule out subarachnoid hemorrhage/aneurysm in the brain. Patient is reassured, suspect this is more likely an atypical migraine for her, close a patient follow-up advised she is comfortable with that plan. Lab Data Attestation: I reviewed the patient's lab results. Labs: Laboratory Results - last 24 hr 04/06/23 04/06/23 22:08 22:08 WBC 10.2 RBC 5.15 Hgb 15.5 H Hct 44.5 MCV 86.4 MCH 30.1 MCHC 34.8 RDW Std Deviation 38.1 RDW Coeff of Melina 12.1 Plt Count 308 MPV 10.9 Immature Gran % (Auto) 2.700 H Neut % (Auto) 66.2 Lymph % (Auto) 21.7 [place] % (Auto) 8.5 Eos % (Auto) 0.1 Baso % (Auto) 0.8 Absolute Neuts (auto) 6.8 Absolute Lymphs (auto) 2.22 Nucleated RBC % 0 Sodium 142 Potassium 3.5 Chloride 109 H Carbon Dioxide 24.0 Anion Gap 9 BUN 23 H Creatinine 0.92 Est GFR (MDRD) Af Amer 86 Est GFR (MDRD) Non-Af 71 BUN/Creatinine Ratio 25.0 H Glucose 112 H Calcium 10.1 Radiography Diagnostic Testing: Clinical Impression(s) from Imaging Studies Head CTA 04/06/23 22:44 IMPRESSION: Negative CTA Head. Electronically Signed: Val Hale MD at 0:46 EDT , Discharge Plan Triage Chief Complaint: Headache ED Provider: Richard Bashir Dx/Rx/DC Orders Clinical Impression: Migraine headache Instructions: ED, Migraine (Classical) Prescriptions: No Action cholecalciferol (vitamin D3) 5,000 UNIT capsule 5,000 units PO QHS Label Comments: Get Vit D L.acidoph, paracasei,B. lactis 1 EACH capsule 1 ea PO DAILY hyoscyamine sulfate 0.375 MG tablet extended release 12 hr 0.375 mg PO QHS Label Comments: Irritalbe bowel fluoxetine 20 MG capsule 20 mg PO QHS Label Comments: anxiety acetaminophen 325 MG tablet 650 mg PO Q4H PRN PRN (Reason: Pain) 0RF docusate sodium 100 MG capsule 100 mg PO BID PRN PRN (Reason: Constipation) Qty: 60 1RF enoxaparin 40 MG/0.4 ML syringe 40 mg SQ DAILY Qty: 14 1RF Primary Care Provider: Lester Harrington Referrals: Lester Harrington DO [Primary Care Provider] - 1 Week if not improving Disposition Disposition: Home, Self Care
[2023-04-07 01:03] VITALS: RESP 18
== END 2023-04-07 01:03 | disposition home or self-care (01) ==
PROVIDERS: Emergency Provider Emergency Medicine; PCP Student in an Organized Health Care Education/Training Program; Visit Provider Emergency Medicine
DX: G43.909 Migraine, unspecified, not intractable, without status migrainosus (principal); Z87.891 Personal history of nicotine dependence; K58.9 Irritable bowel syndrome, unspecified; Z79.899 Other long term (current) drug therapy; Z79.01 Long term (current) use of anticoagulants; Z86.711 Personal history of pulmonary embolism
CPT/HCPCS: 70496; 80048; 85025; 96374; 99284; Q9967; A4216